=== PATIENT | female | born 1945 | race Caucasian/White ===

== ENCOUNTER 2023-07-29 12:19 | Outpatient (RCR) | payer MEDICARE, OTHER, SELFPAY | END 2023-07-29 23:59 | disposition home or self-care (01) | LOC: RPT 12:19 | PROVIDERS: ATTENDING PHYSICIAN Nurse Practitioner; FAMILY PHYSICIAN Family Medicine | DX: N39.3 Stress incontinence (female) (male) (principal); R35.0 Frequency of micturition; Z73.6 Limitation of activities due to disability | CPT/HCPCS: 97162; 97535 ==

== ENCOUNTER 2023-08-31 13:24 | Outpatient (RCR) | payer MEDICARE, OTHER, SELFPAY | END 2023-08-31 23:59 | disposition home or self-care (01) | LOC: RPT 13:24 | PROVIDERS: ATTENDING PHYSICIAN Nurse Practitioner; FAMILY PHYSICIAN Family Medicine | DX: N39.3 Stress incontinence (female) (male) (principal); R35.0 Frequency of micturition; Z73.6 Limitation of activities due to disability | CPT/HCPCS: 97010; 97110; 97535 ==

== ENCOUNTER 2023-09-28 13:05 | Outpatient (RCR) | payer MEDICARE, OTHER, SELFPAY | END 2023-09-28 23:59 | disposition home or self-care (01) | LOC: RPT 13:05 | PROVIDERS: ATTENDING PHYSICIAN Nurse Practitioner; FAMILY PHYSICIAN Family Medicine | DX: N39.3 Stress incontinence (female) (male) (principal); R35.0 Frequency of micturition; Z73.6 Limitation of activities due to disability | CPT/HCPCS: 97110; 97535 ==

== ENCOUNTER 2023-10-19 17:26 | Emergency (ER) | payer MEDICARE, OTHER, SELFPAY ==
[2023-10-19 17:35] VITALS: BP 157/104
[2023-10-19 18:06] LABS: % Basophils 0.6 % (0-2); % Eosinophils 2.4 % (0-6); % Immature Granulocytes 0.4 % (0-0.5); % Lymphocytes 34.1 % (20.5-51.1); % Monocytes 7.3 % (1.7-9.3); % Neutrophils 55.2 % (42.2-75.2); Absolute Basophils 0.1 10^3/uL (0-0.2); Absolute Eosinophils 0.3 10^3/uL (0-0.7); Absolute Lymphocytes 3.8 10^3/uL (1.2-3.4); Absolute Monocytes 0.8 10^3/uL (0.1-0.6); Absolute Neutrophils 6.1 10^3/uL (1.4-6.5); Hematocrit 39.9 % (37.0-47.0); Mean Corp Hgb Conc. 32.6 g/dL (33.0-37.0); Mean Corpuscular Hgb 30.5 pg (27.0-31.0); Mean Corpuscular Volume 93.7 fL (81.0-99.0); Mean Platelet Volume 9.7 fL (7.4-10.4); Nucleated Red Blood Cells % 0 %; Platelet Count 291 10^3/uL (130-400); Red Blood Cell Count 4.26 10^6/uL (4.20-5.40); Red Cell Dist. Width 13.8 % (11.5-14.5)
[2023-10-19 18:20] LABS: AST (SGOT) 28 U/L (14-36); Albumin 4.3 g/dl (3.5-5.0); Alkaline Phosphatase 79 U/L (38-126); Blood Urea Nitrogen 14 mg/dl (7-17); Calcium 9.5 mg/dl (8.4-10.2); Carbon Dioxide 24 mmol/L (22-30); Chloride 105 mmol/L (98-107); Glucose 105 mg/dl (70-99); Lipase 64 U/L (23-300); Potassium 4.3 mmol/L (3.5-5.1); Sodium 135 mmol/L (135-145); Total Bilirubin 0.5 mg/dl (0.2-1.3); Total Protein 6.7 g/dl (6.3-8.2); eGFR > 60.00
[2023-10-19 18:21] LABS: ALT (SGPT) 28 U/L (0-35)
[2023-10-19 20:00] VITALS: BMI 28.4
--- NOTE | 2023-10-19 20:18 | ED.GENMED ---
History of Present Illness
General
Chief Complaint: Abdominal Pain
Source: patient
Exam Limitations: none
Time Seen by Provider: 10/19/23 19:29
Travel History
Have you had any contact with someone who has COVID-19?: No
Do you have any symptoms of coronavirus? Fever > 100 degrees, chills, cough, shortness of breath, sore throat, loss of taste or smell, muscle aches, or headache?: No
History of Present Illness
History of Present Illness:
This is a 78 year old female that comes in with c/o upper abd pain. States that she went to see the PCP today as she has had upper abd pain. States that she has UTI and was on Macrobid. States that 2 days after she stopped the medication she had
upper abd pain, nausea, and diarrhea. States that the PCP thought it could be Pancreatitis. State that she also has a headache. Denies any fever, chills, chest pain, SOB, vomiting, dizziness, urinary burning.
Past History
Past History
ED Past Medical History: Fibromyalgia, GERD, HTN, Hypothyroidism and Other (Back pain Diverticulitis, UTI, Gastritis)
ED Past Surgical History: Appendectomy, Cholecystectomy, , Gynecological (Hysterectomy total) and Tonsilectomy
Social History
Tobacco: Non-smoker
Alcohol: Occasional
Personal:
Living: alone
Family History
Family History: Diabetes and CAD
Review of Systems
Review of Systems
All Other Systems: ROS reviewed and negative except as documented in HPI and ROS
Constitutional: Reports no symptoms; Denies fever or chills
EENT: Reports no symptoms
Respiratory: Reports no symptoms; Denies cough or trouble breathing
Cardiac: Reports no symptoms; Denies chest pain
ABD/GI: Reports abdominal pain (Upper abd pain), nausea and diarrhea; Denies vomiting
: Reports no symptoms; Denies dysuria, frequency or urgency
Musculoskeletal: Reports no symptoms
Skin: Reports no symptoms
Psychiatric: Reports no symptoms
Phy Exam
General Physical Exam
General Presentation: mild distress
General age: appears stated age
General Skin: warm and dry
General Habitus: elderly
General Mental: alert and anxious
General Hydration: appears well hydrated
ENT Exam
ENT Exam: TM's normal, pharynx normal and neck supple
Eye Exam
Eye Exam: EOMI
Cardiovascular Exam
Cardiovascular Exam: regular rate/rhythm, no edema, no murmur and normal peripheral pulses
Pulmonary Exam
Pulmonary Exam: lungs clear, no respiratory distress, no rales, chest non tender, no crackles, no rhonchi, no wheezing and no cough
Gastrointestinal Exam
Gastrointestinal Exam: normal bowel sounds, soft, no organomegaly, no pulsatile mass, non distended and tender (Epigastric tenderness with palpation)
Musculoskeletal Exam
Musculoskeletal Exam: full ROM and no edema
Skin Exam
Skin Exam: normal color, warm/dry, no rash and no petechia
Psychiatric Exam
Psychiatric Exam: normal mood/affect
Course
Orders/Labs/Results
Orders:
Orders
10/19/23 17:32
IV Insert/Care/Rem.- Treatment PRN
Urinalysis Reflex To Culture Urgent
Date Specimen was Collected: 10/19/23
Time Specimen was Collected: 17:33
10/19/23 17:33
EKG [Electrocardiogram (*1)] Urgent
Reason for Study: Abdominal Pain
EKG- Treatment ONCE
10/19/23 17:46
Complete Blood Count/With Diff Urgent
Comprehensive Metabolic Panel Urgent
Lipase Urgent
10/19/23 20:17
Pantoprazole [Protonix IV] 40 mg IV NOW STA
Sucralfate Suspension [Carafate Suspension] 1 gm PO NOW STA
US Abdomen Complete/Upper Urgent
Comment:
Reason For Exam: Upper abd pain
10/19/23 20:20
Ondansetron Injectable [Zofran] 4 mg IV NOW STA
Abnormal Lab Results
10/19/23
17:46
WBC 11.0 H 10^3/uL
(4.8-10.8)
MCHC 32.6 L g/dL
(33.0-37.0)
Absolute Lymphs (auto) 3.8 H 10^3/uL
(1.2-3.4)
Absolute Monos (auto) 0.8 H 10^3/uL
(0.1-0.6)
Glucose 105 H mg/dl
(70-99)
10/19/23 17:46
10/19/23 17:46
WBC very slightly elevated. Glucose nonfasting. Lipase normal at 64
Vital Signs
Initial and Last Documented VS:
Initial Vital Signs
Temp Pulse Resp BP Pulse Ox
97.6 F 95 18 157/104 98
10/19/23 17:35 10/19/23 17:35 10/19/23 17:35 10/19/23 17:35 10/19/23 17:35
Last Documented Vital Signs
Temp Pulse Resp BP Pulse Ox
97.6 F 72 20 152/72 97
10/19/23 17:35 10/19/23 20:39 10/19/23 20:39 10/19/23 20:39 10/19/23 20:39
MDM/Problems Addressed
Differential Diagnosis Includes:
Gastritis,
MDM/Problems Addressed:
This is a 78 year old female that comes in with c/o epigastric pain. States that this started 2 days after she stopped the Macrobid for a UTI. States that she also had diarrhea. Patient went to see the PCP today and was sent into the ER.
Will check labs. US abd and give Protonix and Carafate.
Back into see patient. Explained that her US is normal. This is most likely a Gastritis. Will have patient use Carafate which she said that she has at home but has not been taking and will also add Protonix daily. Patient to follow up with the GI
specialist for further evaluation. Patient to return with any concerns.
Chronic conditions affecting care:
Gastritis
Acute Exacerbation and/or Progression of Chronic Illness:
Gastritis
*Radiology
Radiology exam reviewed: radiology read reviewed (US-Moderate diffuse hepatic steatosis. Previous cholecystectomy. No sonograpic evidence for biliary obstruction. NO sonographic evidence for upper abd ascites. Mild chronic bilateral renal disease. )
*EKG
Interpreted by ED Provider?: Yes
Heart Rate: 84
Rate: normal
Rhythm: PAC's
Chrisney: normal axis
Interval: normal interval
QRS Pattern: normal QRS
Ischemia: no ischemia
*Director Of Player Personnel Interpretation
Rate: Director Of Player Personnel- N/A
*Critical Care Note
Total Time (30-74mins, 75-104mins- exclusive of procedures): Not Applicable
ED Attending Note
-
Portions of this chart may have been created with voice recognition software.� Occasional wrong word or��sound alike� substitutions may have occurred due to the inherent limitations of voice recognition software.
Discharge Plan
Departure
Patient Disposition: Home (Routine Discharge)
Date of Disposition: 10/19/23
Time of Disposition: 22:09
Patient with high blood pressure during this ER visit?: Yes
Condition: Good
Covid-19: Not Applicable
Discharge Problem:
Gastritis
Instructions: Gastritis (DC), Ulcer and Gastritis Diet, BLOOD PRESSURE
Prescriptions:
New
pantoprazole [Protonix] 40 mg tablet,delayed release (DR/EC)
40 mg PO DAILY Qty: 30 0RF
No Action
levothyroxine 88 MCG tablet
88 mcg PO DAILY
cyclobenzaprine 10 MG tablet
10 mg PO HSPRN PRN (Reason: fibromyalgia)
Eye Drops (tetrahydrozoline) 1 DROP drops
1 drp BOTH EYES BIDPRN PRN (Reason: dry eyes)
acyclovir 200 MG capsule
400 mg PO TID PRN (Reason: 'herpes outbreaks')
Eliquis 5 mg tablet
5 mg PO BID Qty: 60 0RF
acetaminophen 500 mg Tablet
1,000 mg PO Q6H PRN (Reason: arthritis)
lorazepam 0.5 mg Tablet
0.5 mg PO HS PRN (Reason: anxiety)
diltiazem HCl [Cartia XT] 120 mg Capsule,Extended Release 24hr
120 mg PO DAILY
estradiol 0.01 % (0.1 mg/gram) Cream
See Rx Instructions .ROUTE .COMPLEX
Rx Instructions:
1 appful vaginally 2 times a week
buspirone 15 mg Tablet
15 mg PO DAILY
multivitamin Tablet
1 tab PO DAILY
alendronate-vitamin D3 70 mg- 2,800 unit Tablet
1 tab PO QWEEK
phenazopyridine [Pyridium] 100 mg tablet
100 mg PO TID PRN (Reason: Pain) Qty: 10 0RF
amitriptyline
10 mg PO DAILY
Referrals:
Durga Bonilla MD [Family Provider] - Call in 1-3 days for appt
Activity Restrictions/Additional Instructions:
As discussed, your US is normal. This is most likely a Gastritis. Please use your Carafate that you have at home 30min to 1 hour before each meal and again at Bedtime. YOu have also been given a prescription for Protonix daily. Follow up with the GI
specialist for further evaluation. You may also use Tylenol 1000mg every 6 hours for you headache pain. Pleae increase your water intake to 8-8oz glasses daily. IF YOU HAVE ANY OTHER CONCERNS PLEASE RETURN TO THE EMERGENCY ROOM.
Interventions
Interventions:
*Risk Screen - Suicide Last Done: 10/19/23 17:35
*General Assessment Last Done: 10/19/23 17:35
*Neglect/Abuse Screening Last Done: 10/19/23 17:35
ED- Fall Risk Assessment Last Done: 10/19/23 19:54
*ED COVID-19 Vaccine History Last Done: 10/19/23 17:35
[facility] Assessment Last Done: 10/19/23 19:54
Discharge Date and Time
Print Language: ROMANSH
[2023-10-19] MEDS: CARAFATE SUSPENSION 1 GM PO (20:26)
[2023-10-19] MEDS: ZOFRAN 4 MG IV (20:26)
[2023-10-19] MEDS: PROTONIX IV 40 MG IV (20:26)
[2023-10-19 20:39] VITALS: BP 152/72
[2023-10-19 22:12] VITALS: BP 148/68
[2023-10-19] MEDS: TYLENOL 1000 MG PO (22:17)
[2023-10-19] MEDS: TORADOL 30 MG IV (22:17)
[2023-10-19 22:56] LABS: Urine Albumin Negative (Neg - Trace); Urine Bilirubin Negative (Negative); Urine Character Clear (Clear); Urine Color Yellow; Urine Glucose Negative (Negative); Urine Ketone Negative (Negative); Urine Leukocyte Negative (Negative); Urine Nitrite Negative (Negative); Urine Occult Blood Negative (Negative); Urine Urobilinogen Negative (Neg - 1+)
[2023-10-19 23:11] VITALS: BP 143/85
== END 2023-10-19 23:14 | disposition home or self-care (01) ==
LOC: EMR 17:26
PROVIDERS: Clinical Nurse Specialist Family Health; Emergency Medicine; EMERGENCY PHYSICIAN Emergency Medicine; FAMILY PHYSICIAN Family Medicine
DX: K29.70 Gastritis, unspecified, without bleeding (principal); I10 Essential (primary) hypertension; Z90.49 Acquired absence of other specified parts of digestive tract
CPT/HCPCS: 99285; 96374; 96375 ×2; 76700; 80053; 81003; 83690; 85025; 93005

== ENCOUNTER → 2023-10-25 10:18 | Outpatient (REF) | payer MEDICARE, OTHER, SELFPAY | LOC: RCS 10:18 | PROVIDERS: ATTENDING PHYSICIAN Nuclear Medicine Nuclear Cardiology; FAMILY PHYSICIAN Family Medicine | DX: I10 Essential (primary) hypertension (principal); R55 Syncope and collapse; I48.92 Unspecified atrial flutter | CPT/HCPCS: 93306 ==

== ENCOUNTER 2023-10-26 13:26 | Outpatient (RCR) | payer MEDICARE, OTHER, SELFPAY | END 2023-10-26 23:59 | disposition home or self-care (01) | LOC: RPT 13:26 | PROVIDERS: ATTENDING PHYSICIAN Nurse Practitioner; FAMILY PHYSICIAN Family Medicine | DX: N39.3 Stress incontinence (female) (male) (principal); R35.0 Frequency of micturition; Z73.6 Limitation of activities due to disability; M54.50 Low back pain, unspecified | CPT/HCPCS: 97110; 97140 ==

== ENCOUNTER 2023-11-04 16:14 | Outpatient (RCR) | payer MEDICARE, OTHER, SELFPAY | END 2023-11-04 23:59 | disposition home or self-care (01) | LOC: RPT 16:14 | PROVIDERS: ATTENDING PHYSICIAN Nurse Practitioner; FAMILY PHYSICIAN Family Medicine | DX: N39.3 Stress incontinence (female) (male) (principal); R35.0 Frequency of micturition; Z73.6 Limitation of activities due to disability | CPT/HCPCS: 97110; 97140 ==

== ENCOUNTER → 2023-11-18 12:18 | Outpatient (REF) | payer MEDICARE, OTHER, SELFPAY | LOC: HWRAD 12:18 | PROVIDERS: ATTENDING PHYSICIAN Otolaryngology; FAMILY PHYSICIAN Family Medicine | DX: J32.2 Chronic ethmoidal sinusitis (principal) | CPT/HCPCS: 70486 ==

== ENCOUNTER 2023-12-29 13:50 | Outpatient (RCR) | payer MEDICARE, OTHER, SELFPAY | END 2023-12-29 14:55 | disposition home or self-care (01) | LOC: RPT 13:50 | PROVIDERS: ATTENDING PHYSICIAN Nurse Practitioner; FAMILY PHYSICIAN Family Medicine | DX: N39.3 Stress incontinence (female) (male) (principal); R35.0 Frequency of micturition; Z73.6 Limitation of activities due to disability | CPT/HCPCS: 97110; 97140 ==

== ENCOUNTER → 2024-03-14 12:58 | Outpatient (REF) | payer MEDICARE, OTHER, SELFPAY | LOC: DHVS 12:58 | PROVIDERS: ATTENDING PHYSICIAN Registered Nurse; FAMILY PHYSICIAN Surgery Vascular Surgery | DX: I65.22 Occlusion and stenosis of left carotid artery (principal) | CPT/HCPCS: 93880 ==

== ENCOUNTER → 2024-03-23 06:20 | Day surgery (SDC) | payer MEDICARE, OTHER, SELFPAY | LOC: GI 06:20 | PROVIDERS: ATTENDING PHYSICIAN Specialist | DX: K29.50 Unspecified chronic gastritis without bleeding (principal); K31.89 Other diseases of stomach and duodenum; R10.13 Epigastric pain; R19.7 Diarrhea, unspecified | CPT/HCPCS: 43239; 88305; 88342 ==

== ENCOUNTER 2024-05-21 09:54 | Inpatient (IN) | payer MEDICARE, OTHER, SELFPAY ==
[2024-05-21] VITALS (10 sets, daily range): BP systolic 116–165; BP diastolic 63–126; BMI 28.1; BMI 26.7
[2024-05-21] MEDS: CARDIZEM 17 MG IV (06:00)
[2024-05-21] MEDS: CARDIZEM 125 IV ×3 (06:01→23:08)
[2024-05-21 06:04] LABS: % Basophils 0.1 % (0-2); % Immature Granulocytes 1.4 % (0-0.5); % Lymphocytes 14.7 % (20.5-51.1); % Monocytes 10.5 % (1.7-9.3); % Neutrophils 73.3 % (42.2-75.2); Absolute Immature Granulocytes 0.2 10^3/uL (0-0.05); Absolute Lymphocytes 1.9 10^3/uL (1.2-3.4); Absolute Monocytes 1.4 10^3/uL (0.1-0.6); Absolute Neutrophils 9.5 10^3/uL (1.4-6.5); Hematocrit 41.4 % (37.0-47.0); Hemoglobin 13.6 g/dL (12.0-16.0); Mean Corp Hgb Conc. 32.9 g/dL (33.0-37.0); Mean Corpuscular Hgb 29.2 pg (27.0-31.0); Mean Platelet Volume 9.9 fL (7.4-10.4); Nucleated Red Blood Cells % 0 %; Platelet Count 478 10^3/uL (130-400); Red Blood Cell Count 4.65 10^6/uL (4.20-5.40); Red Cell Dist. Width 14.8 % (11.5-14.5)
[2024-05-21] MEDS: ATIVAN 1 MG IV (06:20)
[2024-05-21 06:24] LABS: Troponin I < 0.012 ng/ml
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
[2024-05-21 06:32] LABS: ALT (SGPT) 32 U/L (0-35); AST (SGOT) 32 U/L (14-36); Albumin 4.6 g/dl (3.5-5.0); Alkaline Phosphatase 86 U/L (38-126); Blood Urea Nitrogen 33 mg/dl (7-17); Calcium 9.7 mg/dl (8.4-10.2); Chloride 110 mmol/L (98-107); Estimated Creatinine Clearance 51 ml/min; Glucose 208 mg/dl (70-99); Potassium 4.4 mmol/L (3.5-5.1); Sodium 143 mmol/L (135-145); Total Bilirubin 0.5 mg/dl (0.2-1.3); Total Protein 7.4 g/dl (6.3-8.2); eGFR > 60.00
[2024-05-21 06:33] LABS: Carbon Dioxide 14 mmol/L (22-30)
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
[2024-05-21] MEDS: FOLVITE 1 MG PO (09:09)
[2024-05-21] MEDS: NSS 500 IV (09:14)
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
[2024-05-21 09:36] LABS: INR 0.93; PT 12.7 Sec (11.4-14.6)
[2024-05-21 09:37] LABS: APTT 26.6 Sec (23.4-35.0)
[2024-05-21 11:05] LABS: Blood Urea Nitrogen 30 mg/dl (7-17); Calcium 8.8 mg/dl (8.4-10.2); Carbon Dioxide 21 mmol/L (22-30); Chloride 110 mmol/L (98-107); Estimated Creatinine Clearance 59 ml/min; Glucose 136 mg/dl (70-99); Potassium 4.6 mmol/L (3.5-5.1); Sodium 143 mmol/L (135-145); eGFR > 60.00
[2024-05-21 11:10] LABS: Magnesium 2.3 mg/dl (1.6-2.3); Phosphorus 3.4 mg/dl (2.5-4.5)
[2024-05-21 11:13] LABS: Alcohol None Detected
[2024-05-21 11:16] LABS: B-Hydroxybutyrate 0.09 mmol/L (0.02-0.27)
[2024-05-21] MEDS: ELIQUIS 5 MG PO ×2 (11:52→20:50)
[2024-05-21] MEDS: NSS 1000 IV ×2 (11:53→20:50)
[2024-05-21] MEDS: TYLENOL 650 MG PO ×3 (12:13→22:41)
[2024-05-21 12:21] LABS: Urine Albumin Negative (Neg - Trace); Urine Bilirubin Negative (Negative); Urine Character Clear (Clear); Urine Color Yellow; Urine Glucose Negative (Negative); Urine Ketone Negative (Negative); Urine Leukocyte Negative (Negative); Urine Nitrite Negative (Negative); Urine Occult Blood Negative (Negative); Urine Urobilinogen Negative (Neg - 1+)
--- NOTE | 2024-05-21 12:33 | PTCARENOTE ---
Addendum entered by Sindhu Castillo RN 05/21/24 13:09:
[facility] protocol in place
Original Note:
Received the patient from the ED in a stretcher. The patient is aaox3, vss, 98% on RA. Rapid Afib on the monitor with a HR of 106. She ambulated to the bed x 1 assist. Her gait is unsteady at times. She uses no ambulatory aids at home. Her Cardizem
gtt is running at 15mg/hr. She complains of chest pain and rated it a 9/10 on scale. She stated that it 'feels like someone is sitting there.' She also stated that she has felt this way for months and her doctor knows.
While doing her admission, she stated that she has one drink nightly before she goes to bed. In addition, she stated that she take multiple doses of allergy pills a day. I instructed her to talk with her doctor before taking any more pills for her
allergies. I oriented her to her room. Her call du is within reach.
[2024-05-21 12:35] LABS: Amphetamines Negative (Negative); Barbiturates Negative (Negative); Benzodiazepines Positive (Negative); Buprenorphine Negative (Negative); Cocaine Negative (Negative); Marijuana Negative (Negative); Methadone Negative (Negative); Methamphetamines Negative (Negative); Opiates Negative (Negative); Phencyclidine Negative (Negative); Tricyclic Antidepressants Negative (Negative)
[2024-05-21 13:08] LABS: Fentanyl, Urine Negative (Negative)
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
[2024-05-21] MEDS: THIAMINE INJECTION 200 MG IV (19:34)
[2024-05-21] MEDS: NON-FORMULARY ITEM 10 MG PO (22:36)
[2024-05-21] MEDS: BUSPAR 15 MG PO (23:08)
--- NOTE | 2024-05-22 01:06 | PTCARENOTE ---
Pt. remains in A-fib, rate mostly 70's-90's; Cardizem infusing at 15 mg/hr. VSS. States she feels much better than when she first came to the hospital, no chest pressure or shortness of breath. Anxious about home situation and wants fast
discharge. Plan of care reviewed with pt., understanding verbalized. NPO for probable cardioversion later this morning. Currently sleeping.
[2024-05-22 02:00] VITALS: BP 144/71
[2024-05-22 02:54] LABS: Hematocrit 37.8 % (37.0-47.0); Hemoglobin 12.3 g/dL (12.0-16.0); Mean Corp Hgb Conc. 32.5 g/dL (33.0-37.0); Mean Corpuscular Hgb 29.4 pg (27.0-31.0); Mean Corpuscular Volume 90.4 fL (81.0-99.0); Mean Platelet Volume 9.7 fL (7.4-10.4); Platelet Count 410 10^3/uL (130-400); Red Blood Cell Count 4.18 10^6/uL (4.20-5.40); White Blood Cell Count 12.3 10^3/uL (4.8-10.8)
[2024-05-22 03:09] LABS: Blood Urea Nitrogen 26 mg/dl (7-17); Calcium 8.7 mg/dl (8.4-10.2); Carbon Dioxide 18 mmol/L (22-30); Chloride 114 mmol/L (98-107); Estimated Creatinine Clearance 57 ml/min; Glucose 159 mg/dl (70-99); Magnesium 2.2 mg/dl (1.6-2.3); Phosphorus 3.3 mg/dl (2.5-4.5); Potassium 4.6 mmol/L (3.5-5.1); Sodium 142 mmol/L (135-145); eGFR > 60.00
--- NOTE | 2024-05-22 05:34 | PTCARENOTE ---
Pt.'s HR 70's, A-fib, had ~2.04 sec pause. Cardizem titrated down to 10 mg/hr.
[2024-05-22] MEDS: SYNTHROID 88 MCG PO (06:17)
[2024-05-22] MEDS: NSS 1000 IV (06:17)
[2024-05-22] MEDS: TYLENOL 650 MG PO ×2 (06:22→19:58)
[2024-05-22] MEDS: CARDIZEM 125 IV (06:25)
[2024-05-22 07:02] VITALS: BP 137/79
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
[2024-05-22 08:19] LABS: Glycohemoglobin (HgbA1c) 6.3 % (4.0-5.6)
[2024-05-22] MEDS: ELIQUIS 5 MG PO ×2 (08:42→19:56)
[2024-05-22] MEDS: PROTONIX 40 MG PO (08:42)
[2024-05-22] MEDS: ASPIR LOW (ENTERIC COATED) 81 MG PO (08:43)
[2024-05-22] MEDS: THIAMINE INJECTION IV (08:44)
[2024-05-22] MEDS: FOLVITE 1 MG PO (08:44)
[2024-05-22] MEDS: THIAMINE INJECTION 200 MG IV ×2 (08:45→19:56)
[2024-05-22] MEDS: CARDIZEM CD 120 MG PO ×3 (10:21→22:37)
[2024-05-22] MEDS: LR 1000 IV (10:22)
--- NOTE | 2024-05-22 10:31 | PTCARENOTE ---
received patient this am , very anxious, alot going on in her personal life, let her talk, offered emotional support. Dr. Carlisle in room, will start to wean off IV Cardizem and start po. monitor shows Afib, HR in the 90's. hospitalist ordered 1 L LR,
hung as ordered. patient remains on MSAS, please see worklist. son in law at bedside asking questions Ena MCDANIELS in talking with family and patient.
--- NOTE | 2024-05-22 11:33 | CM ---
Chart reviewed. Patient is independent of ADLS, lives with her disabled sister who she cares for, in a 1 STH, 4 SAHIL, 0 DME. Patient having a lot of anxiety with managing her sister. She has a plan in place with placement of her sister into
[facility]. Patient currently has samples of Eliquis and told me she pays $250 a month. The stage set designer office has been giving her samples. I placed a free 30 day coupon in the patient's red discharge folder. Patients ARSH was at bedside,
unable to offer substance abuse counseling at the present. Will reassess. Plan is for the patient to return home. CM to follow
[2024-05-22 12:00] VITALS: BP 156/98
[2024-05-22 14:34] LABS: Blood Urea Nitrogen 21 mg/dl (7-17); Calcium 8.9 mg/dl (8.4-10.2); Carbon Dioxide 18 mmol/L (22-30); Chloride 111 mmol/L (98-107); Estimated Creatinine Clearance 50 ml/min; Glucose 128 mg/dl (70-99); Potassium 4.3 mmol/L (3.5-5.1); Sodium 142 mmol/L (135-145); eGFR > 60.00
[2024-05-22 15:07] VITALS: BP 154/69
[2024-05-22 15:30] LABS: TSH Reflex To Free T4 0.33 uIU/ml (0.47-4.68)
[2024-05-22 15:59] LABS: Free T4 1.08 ng/dl (0.78-2.19)
--- NOTE | 2024-05-22 16:30 | W.PN.HOSP.TC ---
Addendum entered and electronically signed by Jacoby Zapata MD 05/22/24 16:54:
[id number]
Original Note:
Today's Communication/Plan
-
Diltiazem 120 mg twice daily
Follow-up CBC, BMP outpatient
Alco cessation
Close cardiology follow-up; cardiology will have office call to check up on her
Assessment / Plan
Assessment / Plan
General: No pallor, cyanosis, or jaundice.
HEENT: Throat clear. PERRLA Normocephalic atraumatic
NECK: Supple. No JVD Carotid Bruits
RESPIRATORY: Lungs clear to auscultation. No crackles wheezes stridor
CVS: Irregularly Irregular tachy. No murmur, rub or gallop.
ABDOMEN: Soft, non-tender. No distension. BS+/normal.
EXTREMITIES: No peripheral cyanosis or edema.
PRODUCE ASSISTANT: AOx3
#Afib AVR
improved on cardizem gtt and once ativan
-Cardizem BID
-MOnitor HRs
-Will get close cards outpatient
IVF support
back on Eliquis 5 mg BID - coupon given
-TFTs outpatient
#possible ETOH use contributing to dehydration as above
#possible ETOH use disorder
endorses daily drinking 1-2 glasses bedtime
Denies hx ETOH withdrawal
Thiamine Folate supplementation
monitor on MSAS protocol for now
educated on cessation
-BMP outpatient
#Social Stressors
#hx Anxiety Fibromyalgia
#pt endorses feelings of depression denies thoughts of harming self or others
Psych eval
cont home
buspirone nortiptyline prn ativan cyclobenzaprine bedtime
#Hypothyroidism
cont home synthroid
TFTs WNL
#GERD
ppi
DVT ppx
Eliquis
More than 30 minutes spent in discharge including
Final examination of the patient
Summarizing hospital stay
Instructions for continuing care to all relevant caregivers
Preparation of discharge records, prescriptions, and referral forms
Total time spent (35 in minutes):
Anticipated Discharge: Within 24 hours
Subjective/Interval History
-
Date of Service: May 22, 2024
Weaning off diltiazem drip to p.o.
Objective Data
-
Labs:
Laboratory Results
05/22/24
13:52
Sodium 142
Potassium 4.3
Chloride 111 H
Carbon Dioxide 18 L
BUN 21 H
Creatinine 0.8
Glucose 128 H
Calcium 8.9
Vital Signs:
Vital Signs
Temp Pulse Resp BP Pulse Ox
98.6 F 145 20 156/98 97
05/22/24 15:05 05/22/24 15:00 05/22/24 15:05 05/22/24 12:00 05/22/24 15:05
I&O
05/21/24 05/22/24 05/23/24
06:59 06:59 06:59
Intake Total 3500 / 3500 720 / 720
Output Total 1550 / 1550 600 / 600
Balance 1950 / 1950 120 / 120
Review of Systems
-
History Source: Patient
All other systems: Not reviewed unless documented
Data Reviewed
-
Labs: Labs Reviewed by me
--- NOTE | 2024-05-22 16:38 | W.DS.TRANS ---
DC Summary - Sports Trainer
-
Discharge Instructions:
Sleep Apnea Risk Low
Discharge Diagnosis/Procedures Atrial fibrillation
Diet Low Cholesterol,Low Fat
Blood Work TFTs outpatient; BMP in 5 days with PCP
Instructions:
Stand-Alone Forms:
Changes to Home Medications: Yes
Discharge Medications:
DC Medications w/original date entered in [employer]
levothyroxine 88 mcg tablet 88 mcg PO DAILY@06 Thyroid 05/23/10
cyclobenzaprine 10 mg tablet 10 mg PO HSPRN PRN fibromyalgia 12/30/17
buspirone 15 mg tablet 15 mg PO HS Mental Health/Anxiety 11/05/22
lorazepam 0.5 mg tablet 0.5 mg PO HS PRN anxiety 11/05/22
pantoprazole 40 mg tablet,delayed release (Protonix) 40 mg PO DAILY Gastrointestinal issue #30 tabs 10/19/23
aspirin 81 mg capsule 81 mg PO DAILY Blood Clot Prevention/Tx 05/21/24
nortriptyline 10 mg/5 mL oral solution 10 mg PO HS Sleep 05/21/24
apixaban 5 mg tablet (Eliquis) 5 mg PO BID 30 days #60 tabs 05/22/24
diltiazem HCl 120 mg capsule,extended release 24 hr 120 mg PO BID 30 days #60 caps 05/22/24
Home Medication Changes
apixaban 5 mg tablet (Eliquis) 5 mg PO BID 30 days #60 tabs 05/22/24
diltiazem HCl 120 mg capsule,extended release 24 hr 120 mg PO BID 30 days #60 caps 05/22/24
Pending Results: No
--- NOTE | 2024-05-22 16:42 | PTCARENOTE ---
HR ranging from 111 to 130's, Ena MCDANIELS aware, ordered another dose of Cardizem 120mg po, given as ordered.
--- NOTE | 2024-05-22 17:02 | PTCARENOTE ---
Addendum entered by Caroline Her RN 05/22/24 17:51:
COVID swab negative.
Original Note:
patient just informed me that her sister who she lives with just tested positive for COVID, patient stated, I have had a headache and scratchy throat. Ena MCDANIELS aware, ordered COVID test.
[2024-05-22 17:47] LABS: COVID-19 Antigen Negative (Negative)
[2024-05-22 19:26] VITALS: BP 162/75
[2024-05-22 22:35] VITALS: BP 130/88
[2024-05-22] MEDS: NON-FORMULARY ITEM 10 MG PO (22:37)
[2024-05-22] MEDS: BUSPAR 15 MG PO (22:37)
[2024-05-23] VITALS (8 sets, daily range): BP systolic 130–188; BP diastolic 83–93
--- NOTE | 2024-05-23 00:46 | PTCARENOTE ---
Assumed care of patient at change of shift. Tele monitor shows Afib, HR in the 90-130s. Patient AAOx3, anxious, and vented about home situation. Emotional support provided. Patient c/o headache pain, Tylenol administered--see MAR for further
details. Call du within reach.
[2024-05-23] MEDS: SYNTHROID 88 MCG PO (04:40)
[2024-05-23 05:30] LABS: Hematocrit 40.2 % (37.0-47.0); Hemoglobin 13.6 g/dL (12.0-16.0); Mean Corp Hgb Conc. 33.8 g/dL (33.0-37.0); Mean Corpuscular Volume 88.5 fL (81.0-99.0); Platelet Count 467 10^3/uL (130-400); Red Blood Cell Count 4.54 10^6/uL (4.20-5.40); Red Cell Dist. Width 15.1 % (11.5-14.5); White Blood Cell Count 15.1 10^3/uL (4.8-10.8)
[2024-05-23 05:50] LABS: Blood Urea Nitrogen 21 mg/dl (7-17); Calcium 9.4 mg/dl (8.4-10.2); Carbon Dioxide 16 mmol/L (22-30); Chloride 109 mmol/L (98-107); Estimated Creatinine Clearance 57 ml/min; Glucose 163 mg/dl (70-99); Magnesium 2.1 mg/dl (1.6-2.3); Phosphorus 3.6 mg/dl (2.5-4.5); Potassium 4.5 mmol/L (3.5-5.1); Sodium 142 mmol/L (135-145); eGFR > 60.00
[2024-05-23] MEDS: PROTONIX 40 MG PO (08:25)
[2024-05-23] MEDS: ASPIR LOW (ENTERIC COATED) 81 MG PO (08:25)
[2024-05-23] MEDS: FOLVITE 1 MG PO (08:26)
[2024-05-23] MEDS: ELIQUIS 5 MG PO ×2 (08:26→19:48)
[2024-05-23] MEDS: CARDIZEM CD 120 MG PO ×2 (08:26→11:25)
[2024-05-23] MEDS: THIAMINE INJECTION 200 MG IV ×2 (08:26→19:48)
[2024-05-23] MEDS: FLUSH (NSS) 1 FLUSH IV (08:27)
--- NOTE | 2024-05-23 09:54 | PTCARENOTE ---
received patient this am, very anxious, very concerned about her sister and now her sister and son in law have covid and she is convinced she has it. I informed her that we did a covid swab on her yesterday and it was negative. monitor shows Afib
with a steady HR in the 100 - 120's. VSS. offered emotional support to patient.
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
--- NOTE | 2024-05-23 11:27 | CM ---
Chart reviewed. Patient is independent of ADLS, lives with her sister who was recently diagnosed with Dementia, in a 1 STH, 4 SAHIL, 0 DME. Patient recently set her sister up with fci care placement at [facility], but patient's sister was
just diagnosed with Covid along with patient's son in law. Patient concerned she is going to get Covid. Patient was tested last night and is negative. CM to follow
[2024-05-23] MEDS: TYLENOL 650 MG PO ×2 (11:31→21:13)
--- NOTE | 2024-05-23 11:31 | PTCARENOTE ---
patient c/o frontal headache, Tylenol po given as ordered.
--- NOTE | 2024-05-23 11:47 | PTCARENOTE ---
HR remains in the 110's plus, additional dose of Cardizem po given as ordered.
--- NOTE | 2024-05-23 14:22 | W.PN.HOSP.TC ---
Today's Communication/Plan
-
Increase Cardizem to 240 mg twice daily
Monitor heart rates, goal heart rate less than 110
If heart rates remain uncontrolled, then plan on CAITLIN/cardioversion
Assessment / Plan
Assessment / Plan
General: No pallor, cyanosis, or jaundice.
HEENT: Throat clear. PERRLA Normocephalic atraumatic
NECK: Supple. No JVD Carotid Bruits
RESPIRATORY: Lungs clear to auscultation. No crackles wheezes stridor
CVS: Irregularly Irregular tachy. No murmur, rub or gallop.
ABDOMEN: Soft, non-tender. No distension. BS+/normal.
EXTREMITIES: No peripheral cyanosis or edema.
SUPERINTENDENT METERS: AOx3
#Afib AVR
improved on cardizem gtt and once ativan
-Cardizem BID; increase to 240 mg twice daily
-MOnitor HRs
�If no improvement in increase in Cardizem, n.p.o. at midnight for possible CAITLIN and cardioversion
IVF support
back on Eliquis 5 mg BID - coupon given
-TFTs outpatient
#possible ETOH use contributing to dehydration as above
#possible ETOH use disorder
endorses daily drinking 1-2 glasses bedtime
Denies hx ETOH withdrawal
Thiamine Folate supplementation
monitor on MSAS protocol for now
educated on cessation
-BMP outpatient
#Social Stressors
#hx Anxiety Fibromyalgia
#pt endorses feelings of depression denies thoughts of harming self or others
Psych eval
cont home
buspirone nortiptyline prn ativan cyclobenzaprine bedtime
#Hypothyroidism
cont home synthroid
TFTs WNL
#GERD
ppi
DVT ppx
Eliquis
Anticipated Discharge: 24 - 48 hours
Subjective/Interval History
-
Date of Service: May 23, 2024
Still tachycardic
Objective Data
-
Labs:
Laboratory Results
05/23/24
04:33
WBC 15.1 H
Hgb 13.6
Hct 40.2
Plt Count 467 H
Sodium 142
Potassium 4.5
Chloride 109 H
Carbon Dioxide 16 L
BUN 21 H
Creatinine 0.7
Glucose 163 H
Calcium 9.4
Vital Signs:
Vital Signs
Temp Pulse Resp BP Pulse Ox
98.4 F 106 16 131/89 96
05/23/24 12:24 05/23/24 11:25 05/23/24 12:24 05/23/24 11:25 05/23/24 12:24
I&O
05/22/24 05/23/24 05/24/24
06:59 06:59 06:59
Intake Total 3500 / 3500 1460 / 1460
Output Total 1550 / 1550 800 / 800 1100 / 1100
Balance 1950 / 1950 660 / 660 -1100 / -1100
Review of Systems
-
History Source: Patient
All other systems: Not reviewed unless documented
Data Reviewed
-
Labs: Labs Reviewed by me
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
[2024-05-23] MEDS: CARDIZEM CD 240 MG PO (19:48)
[2024-05-23] MEDS: ANESTHETIC LOZENGE 1 LOZENGE PO (21:13)
[2024-05-23] MEDS: BUSPAR 15 MG PO (22:40)
[2024-05-23] MEDS: NON-FORMULARY ITEM 10 MG PO (22:40)
--- NOTE | 2024-05-23 23:11 | PTCARENOTE ---
Patient ambulating self in room. Tele monitor shows Afib. HR in the 140-150's w/ ambulation. At rest HR in the 90-110's. Patient aware to maintain NPO status at midnight for possible CAITLIN/CV on 05/24. Call du within reach.
[2024-05-24] VITALS (7 sets, daily range): BP systolic 122–154; BP diastolic 74–103
[2024-05-24] MEDS: TYLENOL 650 MG PO ×3 (04:38→23:15)
[2024-05-24] MEDS: SYNTHROID 88 MCG PO (04:39)
[2024-05-24 04:47] LABS: Hemoglobin 13.8 g/dL (12.0-16.0); Mean Corp Hgb Conc. 32.9 g/dL (33.0-37.0); Mean Corpuscular Hgb 29.2 pg (27.0-31.0); Mean Corpuscular Volume 88.8 fL (81.0-99.0); Mean Platelet Volume 9.2 fL (7.4-10.4); Platelet Count 458 10^3/uL (130-400); Red Blood Cell Count 4.73 10^6/uL (4.20-5.40); Red Cell Dist. Width 15.1 % (11.5-14.5); White Blood Cell Count 20.6 10^3/uL (4.8-10.8)
[2024-05-24 05:11] LABS: Blood Urea Nitrogen 24 mg/dl (7-17); Calcium 9.2 mg/dl (8.4-10.2); Carbon Dioxide 17 mmol/L (22-30); Chloride 112 mmol/L (98-107); Estimated Creatinine Clearance 50 ml/min; Glucose 152 mg/dl (70-99); Magnesium 2.2 mg/dl (1.6-2.3); Phosphorus 4.2 mg/dl (2.5-4.5); Potassium 4.7 mmol/L (3.5-5.1); Sodium 143 mmol/L (135-145); eGFR > 60.00
[2024-05-24] MEDS: FOLVITE 1 MG PO (08:03)
[2024-05-24] MEDS: CARDIZEM CD 240 MG PO ×2 (08:05→21:02)
[2024-05-24] MEDS: ASPIR LOW (ENTERIC COATED) 81 MG PO (08:05)
[2024-05-24] MEDS: PROTONIX 40 MG PO (08:05)
[2024-05-24] MEDS: THIAMINE INJECTION 200 MG IV (08:06)
[2024-05-24] MEDS: ELIQUIS 5 MG PO ×2 (08:16→21:02)
--- NOTE | 2024-05-24 08:27 | PTCARENOTE ---
The patient is refusing her BuSpar this morning. 'It make me feel dopey and gives me dry mouth, I don't want it'. She also states that she thought the nighttime dose was supposed to be split in half giving her 7.5 mg in the morning and at night, not
7.5 mg in the morning and 15 mg at night.
She also stated that her sister and son-in-law both have Covid. She has an occasional non-productive cough. She also complains of a scratchy throat and nasal congestion 'but I had that (nasal congestion) way before I came here.'
Rapid afib is noted on the monitor with HRs in the low 100s.
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
[2024-05-24] MEDS: LOPRESSOR 12.5 MG PO ×2 (09:35→21:02)
[2024-05-24] MEDS: LR 1000 IV (09:38)
[2024-05-24] MEDS: FLUSH (NSS) 1 FLUSH IV ×2 (09:39→10:54)
[2024-05-24 09:54] LABS: COVID-19 Antigen Positive (Negative)
--- NOTE | 2024-05-24 10:31 | PTCARENOTE ---
Patient's Covid came back positive, Dr. Zapata notified.
[2024-05-24] MEDS: ANESTHETIC LOZENGE 1 LOZENGE PO (10:54)
--- NOTE | 2024-05-24 11:28 | CM ---
Chart reviewed. 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 Patient sister getting placed in a LTC facility, but just contracted covid. Patient also tested positive for covid.
Plan is for the patient to return home. CM to follow
--- NOTE | 2024-05-24 15:10 | W.PN.HOSP.TC ---
Today's Communication/Plan
-
supportive care for sars-cov-2
add lopressor - monitor response
Assessment / Plan
Assessment / Plan
General: No pallor, cyanosis, or jaundice.
HEENT: Throat clear. PERRLA Normocephalic atraumatic
NECK: Supple. No JVD Carotid Bruits
RESPIRATORY: Lungs clear to auscultation. No crackles wheezes stridor
CVS: Irregularly Irregular tachy. No murmur, rub or gallop.
ABDOMEN: Soft, non-tender. No distension. BS+/normal.
EXTREMITIES: No peripheral cyanosis or edema.
RECORD KEEPER: AOx3
#Afib AVR
improved on cardizem gtt and once ativan
-Cardizem BID; increase to 240 mg twice daily
� Add Lopressor 12.5 mg twice daily
� Holding off on CAITLIN/cardioversion due to SARS-CoV-2
-MOnitor HRs
IVF support
back on Eliquis 5 mg BID - coupon given
-TFTs outpatient
#SARS-CoV-2
# Mild symptoms
� Not hypoxic
� Supportive care
#possible ETOH use contributing to dehydration as above
#possible ETOH use disorder
endorses daily drinking 1-2 glasses bedtime
Denies hx ETOH withdrawal
Thiamine Folate supplementation
monitor on MSAS protocol for now
educated on cessation
-BMP outpatient
#Social Stressors
#hx Anxiety Fibromyalgia
#pt endorses feelings of depression denies thoughts of harming self or others
Psych eval
cont home
buspirone nortiptyline prn ativan cyclobenzaprine bedtime
#Hypothyroidism
cont home synthroid
TFTs WNL
#GERD
ppi
DVT ppx
Eliquis
Anticipated Discharge: 24 - 48 hours
Subjective/Interval History
-
Date of Service: May 24, 2024
Similar episodes of rapid A-fib walking to bathroom
COVID-positive
Objective Data
-
Labs:
Laboratory Results
05/24/24
04:31
WBC 20.6 H
Hgb 13.8
Hct 42.0
Plt Count 458 H
Sodium 143
Potassium 4.7
Chloride 112 H
Carbon Dioxide 17 L
BUN 24 H
Creatinine 0.8
Glucose 152 H
Calcium 9.2
Vital Signs:
Vital Signs
Temp Pulse Resp BP Pulse Ox
98.3 F 94 20 140/79 97
05/24/24 12:13 05/24/24 12:13 05/24/24 12:13 05/24/24 12:13 05/24/24 12:13
I&O
05/23/24 05/24/24 05/25/24
06:59 06:59 06:59
Intake Total 1460 / 1460 240 / 240 1000 / 1000
Output Total 800 / 800 1900 / 1900
Balance 660 / 660 -1660 / -1660 1000 / 1000
Review of Systems
-
History Source: Patient
All other systems: Not reviewed unless documented
Data Reviewed
-
Labs: Labs Reviewed by me
[2024-05-24] MEDS: VITAMIN B1 100 MG PO (21:02)
[2024-05-24] MEDS: BUSPAR 10 MG PO (21:03)
[2024-05-24] MEDS: NON-FORMULARY ITEM 10 MG PO (21:04)
--- NOTE | 2024-05-24 21:18 | PTCARENOTE ---
Received patient at change of shift. Patient sitting in bed, awake, alert, and oriented. No c/o of pain. BP 142/88, AFib 95-108, 97% on room air. Discussed plan of care. Patient verbalized understanding. Call du within reach.
[2024-05-25 03:37] VITALS: BP 125/77
[2024-05-25] MEDS: TYLENOL 650 MG PO ×2 (03:37→12:09)
[2024-05-25 04:13] LABS: Hematocrit 43.3 % (37.0-47.0); Hemoglobin 13.9 g/dL (12.0-16.0); Mean Corp Hgb Conc. 32.1 g/dL (33.0-37.0); Mean Corpuscular Volume 90.4 fL (81.0-99.0); Mean Platelet Volume 9.5 fL (7.4-10.4); Platelet Count 495 10^3/uL (130-400); Red Blood Cell Count 4.79 10^6/uL (4.20-5.40); Red Cell Dist. Width 15.2 % (11.5-14.5); White Blood Cell Count 20.1 10^3/uL (4.8-10.8)
[2024-05-25 04:37] LABS: Blood Urea Nitrogen 28 mg/dl (7-17); Calcium 9.4 mg/dl (8.4-10.2); Carbon Dioxide 21 mmol/L (22-30); Chloride 107 mmol/L (98-107); Estimated Creatinine Clearance 50 ml/min; Glucose 140 mg/dl (70-99); Magnesium 2.2 mg/dl (1.6-2.3); Phosphorus 4.3 mg/dl (2.5-4.5); Potassium 4.5 mmol/L (3.5-5.1); Sodium 143 mmol/L (135-145); eGFR > 60.00
[2024-05-25] MEDS: SYNTHROID 88 MCG PO (06:13)
[2024-05-25 08:24] VITALS: BP 118/76
[2024-05-25] MEDS: PROTONIX 40 MG PO (08:49)
[2024-05-25] MEDS: FOLVITE 1 MG PO (08:49)
[2024-05-25] MEDS: ELIQUIS 5 MG PO (08:49)
[2024-05-25] MEDS: VITAMIN B1 100 MG PO (08:49)
[2024-05-25] MEDS: CARDIZEM CD 240 MG PO (08:50)
[2024-05-25] MEDS: ASPIR LOW (ENTERIC COATED) 81 MG PO (08:50)
[2024-05-25] MEDS: LOPRESSOR 12.5 MG PO (08:50)
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
[2024-05-25 11:27] VITALS: BP 113/75
--- NOTE | 2024-05-25 11:45 | W.PN.HOSP.TC ---
Today's Communication/Plan
-
supportive care for sars-cov-2
lopressor, cardizem
cbc, bmp outpatient with pcp
tfts outpatient
f/u cbc, cards outpatient
Assessment / Plan
Assessment / Plan
General: No pallor, cyanosis, or jaundice.
HEENT: Throat clear. PERRLA Normocephalic atraumatic
NECK: Supple. No JVD Carotid Bruits
RESPIRATORY: Lungs clear to auscultation. No crackles wheezes stridor
CVS: Irregularly Irregular tachy. No murmur, rub or gallop.
ABDOMEN: Soft, non-tender. No distension. BS+/normal.
EXTREMITIES: No peripheral cyanosis or edema.
RADAR ENGINEER: AOx3
#Afib AVR
improved on cardizem gtt and once ativan
-Cardizem BID; increase to 240 mg twice daily
� Lopressor 12.5 mg twice daily
� Holding off on CAITLIN/cardioversion due to SARS-CoV-2
-MOnitor HRs
IVF support
back on Eliquis 5 mg BID - coupon given
-TFTs outpatient
�Follow-up cardiology outpatient
#SARS-CoV-2
# Mild symptoms
� Not hypoxic
� Supportive care
#Leukocytosis
� Remains afebrile
� Would follow-up outpatient PCP
#possible ETOH use contributing to dehydration as above
#possible ETOH use disorder
endorses daily drinking 1-2 glasses bedtime
Denies hx ETOH withdrawal
Thiamine Folate supplementation
monitor on MSAS protocol for now
educated on cessation
-BMP outpatient
#Social Stressors
#hx Anxiety Fibromyalgia
#pt endorses feelings of depression denies thoughts of harming self or others
Psych eval
cont home
buspirone nortiptyline prn ativan cyclobenzaprine bedtime
#Hypothyroidism
cont home synthroid
TFTs WNL
#GERD
ppi
DVT ppx
Eliquis
More than 30 minutes spent in discharge including
Final examination of the patient
Summarizing hospital stay
Instructions for continuing care to all relevant caregivers
Preparation of discharge records, prescriptions, and referral forms
Total time spent (35 in minutes):
Anticipated Discharge: Today
Subjective/Interval History
-
Date of Service: May 25, 2024
No acute events, heart rate much better controlled
Objective Data
-
Labs:
Laboratory Results
05/25/24
03:33
WBC 20.1 H
Hgb 13.9
Hct 43.3
Plt Count 495 H
Sodium 143
Potassium 4.5
Chloride 107
Carbon Dioxide 21 L
BUN 28 H
Creatinine 0.8
Glucose 140 H
Calcium 9.4
Vital Signs:
Vital Signs
Temp Pulse Resp BP Pulse Ox
98.3 F 98 18 118/76 96
05/25/24 11:29 05/25/24 11:15 05/25/24 11:29 05/25/24 08:24 05/25/24 11:29
I&O
05/24/24 05/25/24 05/26/24
06:59 06:59 06:59
Intake Total 240 / 240 1000 / 1000
Output Total 1900 / 1900 1200 / 1200
Balance -1660 / -1660 -200 / -200
Review of Systems
-
History Source: Patient
All other systems: Not reviewed unless documented
Data Reviewed
-
Labs: Labs Reviewed by me
--- NOTE | 2024-05-25 11:49 | W.DS.TRANS ---
DC Summary - Press Technician
-
Discharge Instructions:
Sleep Apnea Risk Low
Discharge Diagnosis/Procedures Atrial fibrillation
Diet Low Cholesterol,Low Fat
Blood Work TFTs outpatient; CBC, BMP in 3-5 days with PCP
Instructions:
Stand-Alone Forms:
Changes to Home Medications: Yes
Discharge Medications:
DC Medications w/original date entered in [facility]
levothyroxine 88 mcg tablet 88 mcg PO DAILY@06 Thyroid 05/23/10
cyclobenzaprine 10 mg tablet 10 mg PO HSPRN PRN fibromyalgia 12/30/17
buspirone 15 mg tablet 15 mg PO HS Mental Health/Anxiety 11/05/22
lorazepam 0.5 mg tablet 0.5 mg PO HS PRN anxiety 11/05/22
pantoprazole 40 mg tablet,delayed release (Protonix) 40 mg PO DAILY Gastrointestinal issue #30 tabs 10/19/23
aspirin 81 mg capsule 81 mg PO DAILY Blood Clot Prevention/Tx 05/21/24
nortriptyline 10 mg/5 mL oral solution 10 mg PO HS Sleep 05/21/24
apixaban 5 mg tablet (Eliquis) 5 mg PO BID 30 days #60 tabs 05/22/24
diltiazem HCl 240 mg capsule,extended release 24 hr 240 mg PO BID 30 days #60 caps 05/25/24
metoprolol tartrate 25 mg tablet 12.5 mg (1/2 x 25 mg) PO BID 30 days #30 tabs 05/25/24
Home Medication Changes
apixaban 5 mg tablet (Eliquis) 5 mg PO BID 30 days #60 tabs 05/22/24
diltiazem HCl 240 mg capsule,extended release 24 hr 240 mg PO BID 30 days #60 caps 05/25/24
metoprolol tartrate 25 mg tablet 12.5 mg (1/2 x 25 mg) PO BID 30 days #30 tabs 05/25/24
Pending Results: No
--- NOTE | 2024-05-25 12:51 | PTCARENOTE ---
Pt seen by Thierry and Benny. Telemetry shows atrial fib at a controlled rate @80. Telemetry and IV device removed. Discharge instructions reviewed with pt regarding covid precautions, medications and their possible side effects and the
importance of taking them consistently, AFib information, reporting cares and concerns and follow up lab tests and appointments. Pt demonstrated good understanding. Pt escorted out via wheelchair and discharged to home.
== END 2024-05-25 12:40 | disposition home or self-care (01) | DRG 308 ==
LOC: IVU 09:54
PROVIDERS: Emergency Medicine; Physician Assistant; ADMITTING PHYSICIAN Internal Medicine; ATTENDING PHYSICIAN Internal Medicine; CONSULT PHYSICIAN Internal Medicine Cardiovascular Disease; CONSULT PHYSICIAN Psychiatry & Neurology Psychiatry; EMERGENCY PHYSICIAN Student in an Organized Health Care Education/Training Program; FAMILY PHYSICIAN Family Medicine
DX: I48.0 Paroxysmal atrial fibrillation (principal); U07.1 COVID-19; E87.20 Acidosis, unspecified; F41.1 Generalized anxiety disorder; M79.7 Fibromyalgia; E03.9 Hypothyroidism, unspecified; K21.9 Gastro-esophageal reflux disease without esophagitis
CPT/HCPCS: 80048; 80053; 80306; 80307; 81003; 82010; 82077; 83036; 83605; 83735; 84100; 84439; 84443; 84484; 85025; 85027; 85610; 85730; 87811; 93005; 96361; 96374; 96375; 99285

== ENCOUNTER 2024-05-30 15:09 | Emergency (ER) | payer MEDICARE, OTHER, SELFPAY ==
[2024-05-30 15:15] VITALS: BP 140/72
[2024-05-30 15:16] VITALS: BP 140/72
[2024-05-30 15:33] LABS: % Basophils 0.3 % (0-2); % Eosinophils 2.2 % (0-6); % Immature Granulocytes 1.8 % (0-0.5); % Lymphocytes 19.5 % (20.5-51.1); % Monocytes 8.3 % (1.7-9.3); % Neutrophils 67.9 % (42.2-75.2); Absolute Basophils 0.1 10^3/uL (0-0.2); Absolute Eosinophils 0.4 10^3/uL (0-0.7); Absolute Immature Granulocytes 0.3 10^3/uL (0-0.05); Absolute Lymphocytes 3.3 10^3/uL (1.2-3.4); Absolute Monocytes 1.4 10^3/uL (0.1-0.6); Absolute Neutrophils 11.4 10^3/uL (1.4-6.5); Hematocrit 36.7 % (37.0-47.0); Hemoglobin 12.6 g/dL (12.0-16.0); Mean Corp Hgb Conc. 34.3 g/dL (33.0-37.0); Mean Corpuscular Hgb 30.1 pg (27.0-31.0); Mean Corpuscular Volume 87.8 fL (81.0-99.0); Mean Platelet Volume 9.4 fL (7.4-10.4); Nucleated Red Blood Cells % 0 %; Platelet Count 386 10^3/uL (130-400); Red Blood Cell Count 4.18 10^6/uL (4.20-5.40); Red Cell Dist. Width 15.6 % (11.5-14.5); White Blood Cell Count 16.8 10^3/uL (4.8-10.8)
[2024-05-30 15:48] LABS: ALT (SGPT) 27 U/L (0-35); AST (SGOT) 21 U/L (14-36); Albumin 3.9 g/dl (3.5-5.0); Alkaline Phosphatase 74 U/L (38-126); Blood Urea Nitrogen 20 mg/dl (7-17); Calcium 8.9 mg/dl (8.4-10.2); Carbon Dioxide 19 mmol/L (22-30); Chloride 107 mmol/L (98-107); Glucose 117 mg/dl (70-99); Sodium 139 mmol/L (135-145); Total Bilirubin 0.5 mg/dl (0.2-1.3); Total Protein 6.4 g/dl (6.3-8.2); eGFR > 60.00
[2024-05-30 16:00] VITALS: BP 139/76
--- NOTE | 2024-05-30 16:11 | ED.GENMED ---
History of Present Illness
<Stacy Wolfe MD, Resident - Last Filed: 05/30/24 21:20>
General
Chief Complaint: Allergic Reaction
Time Seen by Provider: 05/30/24 15:14
History of Present Illness
History of Present Illness:
78 y/o female with pmhx of Afib with RVR and GERD presenting to the ED with concern for allergic reaction with Cardizem. Patient was seen here last week for Afib and was started on Eliquis and Cardizem. Pt notes she has been feeling well since being
discharged on Wednesday. Pt feels a burning sensation in her throat when drinking but denies trouble breathing. Also notes notes headache in the frontal area which states are similar to her prior episodes of headache Also notes abdominal discomfort and
epigastric pain and nausea (no vomiting), has a history of GERD and feels her symptoms have been worse in the past couple days and no relief with pantoprazole. Pt notes taking an antihistamine today and felt better after that. Denies rash, diarrhea,
cough, chills, fever, urinary symptoms, change in mental status. Patient tested positive for COVID-19 on last visit (05/25/2024).
Past History
<Stacy Wolfe MD, Resident - Last Filed: 05/30/24 21:20>
Past History
ED Past Medical History: Fibromyalgia, GERD, HTN, Hypothyroidism and Other (Back pain Diverticulitis, UTI, Gastritis)
ED Past Surgical History: Appendectomy, Cholecystectomy, , Gynecological (Hysterectomy total) and Tonsilectomy
Social History
Tobacco: Non-smoker
Alcohol: Occasional
Personal:
Living: alone
Family History
Family History: Diabetes and CAD
Review of Systems
<Stacy Wolfe MD, Resident - Last Filed: 05/30/24 21:20>
Review of Systems
Constitutional: Reports no symptoms
EENT: Reports sore throat and other (sore nose)
Respiratory: Reports no symptoms
Cardiac: Reports no symptoms
ABD/GI: Reports abdominal pain and nausea
: Reports no symptoms
Musculoskeletal: Reports no symptoms
Skin: Reports no symptoms
Neurological: Reports no symptoms
Endocrine: Reports no symptoms
Hematologic/Lymphatic: Reports no symptoms
Psychiatric: Reports no symptoms
Phy Exam
<Stacy Wolfe MD, Resident - Last Filed: 05/30/24 21:20>
Physical Exam
Physical Exam:
GENERAL: Alert, in no apparent distress
EYE: pupils equal and reactive
NECK: Supple, no significant adenopathy.
ENT: o/p clr, mmm. Airway intact
CARDIAC: Regular rate and rhythm.
LUNGS: Clear breath sounds bilaterally, no acute respiratory distress, no wheezes/rales/rhonchi
ABDOMEN: Soft, without focal tenderness, no r/g, no cvat
NEUROLOGICAL: Alert and oriented, no focal neuro deficits
SKIN: Warm and dry, skin intact.
MUSCULOSKELETAL: No edema, well perfused.
PSYCH: Normal and appropriate interaction.
Course
<Stacy Wolfe MD, Resident - Last Filed: 05/30/24 21:20>
Orders/Labs/Results
Orders:
Orders
05/30/24 15:17
EKG [Electrocardiogram (*1)] Urgent
Reason for Study: Fatigue / Weakness
05/30/24 15:18
EKG- Treatment ONCE
05/30/24 15:20
Complete Blood Count/With Diff Urgent
Comprehensive Metabolic Panel Urgent
05/30/24 19:27
Sucralfate [Carafate] 1 gram PO NOW STA
05/30/24 19:46
Lidocaine Visc/Maalox/Benadryl [Magic or Miracle Mouthwash] 10 ml PO NOW STA
Abnormal Lab Results
05/30/24
15:20
WBC 16.8 H 10^3/uL
(4.8-10.8)
RBC 4.18 L 10^6/uL
(4.20-5.40)
Hct 36.7 L %
(37.0-47.0)
RDW 15.6 H %
(11.5-14.5)
Abs Immat Gran (auto) 0.3 H 10^3/uL
(0-0.05)
Absolute Neuts (auto) 11.4 H 10^3/uL
(1.4-6.5)
Absolute Monos (auto) 1.4 H 10^3/uL
(0.1-0.6)
Immature Gran % 1.8 H %
(0-0.5)
Lymphocytes % 19.5 L %
(20.5-51.1)
Carbon Dioxide 19 L mmol/L
(22-30)
BUN 20 H mg/dl
(7-17)
Glucose 117 H mg/dl
(70-99)
05/30/24 15:20
05/30/24 15:20
Vital Signs
Initial and Last Documented VS:
Initial Vital Signs
Pulse Resp BP Pulse Ox
87 13 140/72 97
05/30/24 15:15 05/30/24 15:15 05/30/24 15:15 05/30/24 15:15
Last Documented Vital Signs
Temp Pulse Resp BP Pulse Ox
98.1 F 88 15 156/75 97
05/30/24 15:18 05/30/24 20:15 05/30/24 20:15 05/30/24 20:00 05/30/24 19:45
[place];Emile Soriano DO - Last Filed: 05/30/24 20:46>
Orders/Labs/Results
Orders:
Orders
05/30/24 15:17
EKG [Electrocardiogram (*1)] Urgent
Reason for Study: Fatigue / Weakness
05/30/24 15:18
EKG- Treatment ONCE
05/30/24 15:20
Complete Blood Count/With Diff Urgent
Comprehensive Metabolic Panel Urgent
05/30/24 19:27
Sucralfate [Carafate] 1 gram PO NOW STA
05/30/24 19:46
Lidocaine Visc/Maalox/Benadryl [Magic or Miracle Mouthwash] 10 ml PO NOW STA
Abnormal Lab Results
05/30/24
15:20
WBC 16.8 H 10^3/uL
(4.8-10.8)
RBC 4.18 L 10^6/uL
(4.20-5.40)
Hct 36.7 L %
(37.0-47.0)
RDW 15.6 H %
(11.5-14.5)
Abs Immat Gran (auto) 0.3 H 10^3/uL
(0-0.05)
Absolute Neuts (auto) 11.4 H 10^3/uL
(1.4-6.5)
Absolute Monos (auto) 1.4 H 10^3/uL
(0.1-0.6)
Immature Gran % 1.8 H %
(0-0.5)
Lymphocytes % 19.5 L %
(20.5-51.1)
Carbon Dioxide 19 L mmol/L
(22-30)
BUN 20 H mg/dl
(7-17)
Glucose 117 H mg/dl
(70-99)
05/30/24 15:20
05/30/24 15:20
Vital Signs
Initial and Last Documented VS:
Initial Vital Signs
Pulse Resp BP Pulse Ox
87 13 140/72 97
05/30/24 15:15 05/30/24 15:15 05/30/24 15:15 05/30/24 15:15
Last Documented Vital Signs
Temp Pulse Resp BP Pulse Ox
98.1 F 88 15 156/75 97
05/30/24 15:18 05/30/24 20:15 05/30/24 20:15 05/30/24 20:00 05/30/24 19:45
<Stacy Wolfe MD, Resident - Last Filed: 05/30/24 21:20>
*Critical Care Note
Total Time (30-74mins, 75-104mins- exclusive of procedures): Not Applicable
ED Attending Note
<Stacy Wolfe MD, Resident - Last Filed: 05/30/24 21:20>
-
Portions of this chart may have been created with voice recognition software.� Occasional wrong word or��sound alike� substitutions may have occurred due to the inherent limitations of voice recognition software.
<Emile Soriano DO - Last Filed: 05/30/24 20:46>
ED Attending Note
Patient seen and examined by attending physician: Yes
I performed a history and physical exam of patient and discussed management with resident, I reviewed resident's note and agree with documented findings and plan of care.: Yes
ED Attending Note:
Patient is a 78-year-old female presents to the emergency department concerned that she is having an allergic reaction to Cardizem. Patient was placed on in the last week for atrial fibrillation. Patient during that admission was diagnosed with
COVID so cardioversion was not done following the CAITLIN. Patient was placed on Cardizem and then metoprolol. Patient complains of burning of her mouth with laryngitis and symptoms of gastritis which she has had before. Patient complains of nausea
with pain and upper abdomen. Patient also noticed a sore in her nose. Patient has had issues with Cardizem in the past that she associated with sun exposure. Patient states she is very sensitive to most medications. Patient had her metoprolol
recently decreased also. Patient states that they kept telling her she was in atrial fibrillation and would do cardioversion but wanted her to be COVID-negative first. Patient admits to being under incredible stress as her sister is upstairs in
the hospital. On physical exam the patient is mildly anxious. Patient's heart is regular and lungs are clear. Abdomen soft with midepigastric tenderness without guarding or rebound. Reviewed the patient's EKG is sinus rhythm. Patient is on
Eliquis. Will stop the diltiazem. Patient has Carafate at home and will start to take that if she is said has helped her in the past. Initially was going to increase her metoprolol but since it was recently lowered will leave it as is. Patient
to follow-up with her synthetic filament extruder on 08 June. Patient understands that if anything worsens is wrist regardless to breathing or heart rate to return.
Discharge Plan
Departure
Patient Disposition: Home (Routine Discharge)
Date of Disposition: 05/30/24
Time of Disposition: 19:48
Patient with high blood pressure during this ER visit?: No
Condition: Fair
Covid-19: Not Applicable
Discharge Problem:
Medication side effect
Instructions: [place] Diet, Gastritis (DC), Adverse Drug Reactions, Adult (DC)
Prescriptions:
No Action
levothyroxine 88 MCG tablet
88 mcg PO DAILY@06
cyclobenzaprine 10 MG tablet
10 mg PO HSPRN PRN (Reason: fibromyalgia)
lorazepam 0.5 mg Tablet
0.5 mg PO HS PRN (Reason: anxiety)
buspirone 15 mg Tablet
15 mg PO HS
pantoprazole [Protonix] 40 mg tablet,delayed release (DR/EC)
40 mg PO DAILY Qty: 30 0RF
nortriptyline 10 mg/5 mL Solution
10 mg PO HS
aspirin 81 mg Capsule
81 mg PO DAILY
Eliquis 5 mg Tablet
5 mg PO BID 30 Days Qty: 60 0RF
diltiazem HCl 240 mg Capsule,Extended Release 24hr
240 mg PO BID 30 Days Qty: 60 0RF
metoprolol tartrate 25 mg Tablet
12.5 mg PO BID 30 Days Qty: 30 0RF
Referrals:
Durga Bonilla MD [Family Provider] - Follow up in 5-7 days
Activity Restrictions/Additional Instructions:
Use Maalox or Mylanta 15 mL and mix with 15 mL of Benadryl elixir. Mix together swish around your mouth and swallow. Do this 4 times a day. Start your Carafate again with meals. Preferably 4 times a day. Increase your pantoprazole to twice a
day. Keep your metoprolol at its current dose. Stop the diltiazem/Cardizem. Make sure to follow-up with your family doctor.
Interventions
Interventions:
*Risk Screen - Suicide Last Done: 05/30/24 15:14
*General Assessment Last Done: 05/30/24 15:14
*Neglect/Abuse Screening Last Done: 05/30/24 15:14
ED- Fall Risk Assessment Last Done: 05/30/24 20:28
*ED COVID-19 Vaccine History Last Done: 05/30/24 15:14
*Nursing Disposition Last Done: 05/30/24 20:28
ED- Cardiac Assessment Last Done: 05/30/24 15:17
ED- Pulmonary Assessment Last Done: 05/30/24 15:17
ED-Skin Assessment Last Done: 05/30/24 15:17
Discharge Date and Time
Discharge Date/Time: 05/30/24 20:31
Print Language: GEORGIAN
[2024-05-30 18:00] VITALS: BP 135/75
[2024-05-30 19:00] VITALS: BP 138/78
[2024-05-30] MEDS: CARAFATE 1 GRAM PO (19:50)
[2024-05-30 20:00] VITALS: BP 156/75
[2024-05-30] MEDS: MAGIC OR MIRACLE MOUTHWASH 10 ML PO (20:19)
== END 2024-05-30 20:31 | disposition home or self-care (01) ==
LOC: EMR 15:09
PROVIDERS: EMERGENCY PHYSICIAN Emergency Medicine; FAMILY PHYSICIAN Family Medicine
DX: R09.89 Other specified symptoms and signs involving the circulatory and respiratory systems (principal); T46.1X5A Adverse effect of calcium-channel blockers, initial encounter; U07.1 COVID-19; I48.91 Unspecified atrial fibrillation; E03.9 Hypothyroidism, unspecified; I10 Essential (primary) hypertension; K21.9 Gastro-esophageal reflux disease without esophagitis; M79.7 Fibromyalgia; Z79.01 Long term (current) use of anticoagulants; Z79.899 Other long term (current) drug therapy
CPT/HCPCS: 99284; 80053; 85025; 93005

== ENCOUNTER → 2024-06-14 14:07 | Outpatient (REF) | payer MEDICARE, OTHER, SELFPAY | LOC: WDC 14:07 | PROVIDERS: ATTENDING PHYSICIAN Family Medicine | DX: Z12.31 Encounter for screening mammogram for malignant neoplasm of breast (principal) | CPT/HCPCS: 77063; 77067 ==

== ENCOUNTER → 2024-06-23 09:24 | Outpatient (REF) | payer MEDICARE, OTHER, SELFPAY | LOC: WDC 09:24 | PROVIDERS: ATTENDING PHYSICIAN Family Medicine | DX: R92.8 Other abnormal and inconclusive findings on diagnostic imaging of breast (principal) | CPT/HCPCS: 76642 ==

== ENCOUNTER → 2024-08-03 09:39 | Outpatient (REF) | payer MEDICARE, OTHER, SELFPAY | LOC: PAVMRI 09:39 | PROVIDERS: ATTENDING PHYSICIAN Specialist; FAMILY PHYSICIAN Family Medicine | DX: R10.11 Right upper quadrant pain (principal) | CPT/HCPCS: 74183; A9575 ==

== ENCOUNTER → 2024-09-14 15:56 | Outpatient (REF) | payer MEDICARE, OTHER, SELFPAY | LOC: RAD 15:56 | PROVIDERS: ATTENDING PHYSICIAN Family Medicine | DX: R76.11 Nonspecific reaction to tuberculin skin test without active tuberculosis (principal); Z11.1 Encounter for screening for respiratory tuberculosis | CPT/HCPCS: 71046 ==

== ENCOUNTER → 2024-09-28 14:11 | Outpatient (REF) | payer MEDICARE, OTHER, SELFPAY | LOC: DHVS 14:11 | PROVIDERS: ATTENDING PHYSICIAN Physician Assistant; FAMILY PHYSICIAN Family Medicine | DX: I65.22 Occlusion and stenosis of left carotid artery (principal) | CPT/HCPCS: 93880 ==

== ENCOUNTER 2024-10-03 19:49 | Emergency (ER) | payer MEDICARE, OTHER, SELFPAY ==
[2024-10-03 19:49] VITALS: BMI 27.1
[2024-10-03 19:53] VITALS: BP 166/83
[2024-10-03 19:55] VITALS: BP 166/83
[2024-10-03 20:12] LABS: % Basophils 0.6 % (0-2); % Eosinophils 2.5 % (0-6); % Immature Granulocytes 0.4 % (0-0.5); % Lymphocytes 27.7 % (20.5-51.1); % Monocytes 8.6 % (1.7-9.3); % Neutrophils 60.2 % (42.2-75.2); Absolute Basophils 0.1 10^3/uL (0-0.2); Absolute Eosinophils 0.3 10^3/uL (0-0.7); Absolute Immature Granulocytes 0.1 10^3/uL (0-0.05); Absolute Lymphocytes 3.4 10^3/uL (1.2-3.4); Absolute Monocytes 1.1 10^3/uL (0.1-0.6); Absolute Neutrophils 7.4 10^3/uL (1.4-6.5); Hematocrit 37.3 % (37.0-47.0); Hemoglobin 12.4 g/dL (12.0-16.0); Mean Corp Hgb Conc. 33.2 g/dL (33.0-37.0); Mean Corpuscular Hgb 27.9 pg (27.0-31.0); Mean Corpuscular Volume 83.8 fL (81.0-99.0); Mean Platelet Volume 9.9 fL (7.4-10.4); Nucleated Red Blood Cells % 0 %; Platelet Count 326 10^3/uL (130-400); Red Blood Cell Count 4.45 10^6/uL (4.20-5.40); Red Cell Dist. Width 14.9 % (11.5-14.5); White Blood Cell Count 12.4 10^3/uL (4.8-10.8)
[2024-10-03 20:29] LABS: ALT (SGPT) 16 U/L (0-35); AST (SGOT) 23 U/L (14-36); Albumin 4.8 g/dl (3.5-5.0); Alkaline Phosphatase 97 U/L (38-126); Blood Urea Nitrogen 14 mg/dl (7-17); Calcium 9.6 mg/dl (8.4-10.2); Carbon Dioxide 24 mmol/L (22-30); Chloride 107 mmol/L (98-107); Estimated Creatinine Clearance 57 ml/min; Glucose 98 mg/dl (70-99); Potassium 3.9 mmol/L (3.5-5.1); Sodium 140 mmol/L (135-145); Total Bilirubin 0.5 mg/dl (0.2-1.3); Total Protein 7.2 g/dl (6.3-8.2); eGFR > 60.00
[2024-10-03 20:37] LABS: Troponin I < 0.012 ng/ml
--- NOTE | 2024-10-03 20:39 | ED.GENMED ---
History of Present Illness
General
Chief Complaint: Chest Pain
Source: patient
Exam Limitations: none
Time Seen by Provider: 10/03/24 20:38
Nursing documentation reviewed up to this point in time: agreed with
History of Present Illness
History of Present Illness:
79 yo female w h/o A-fib on Eliquis, hypothyroidism, GERD, anxiety, HTN, HLD osteoporosis, fibromyalgia, presents for left chest pain for past 5 days. Pain worse if she presses on the area. Denies SOB, abd. pain, n/v/d/c.
Was at Dr. Gil's office 2:30 p.m. today and saw the BURIAL VAULT MAKER to review recent carotid studies, was told no change and she didn't have to f/u for another year. Her BP was high in the office so they recommended she come here for evaluation.
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
She had the left side chest pains and couldn't decide if it was her chronic gastritis or not so came here for evaluation.
She has been clearing out her house carrying boxes and items back and forth to her shed past couple of weeks and admits this may be muscular pain.
She has appointment with Cardiology Dr. Carlisle tomorrow.
Past History
Past History
ED Past Medical History: Fibromyalgia, GERD, HTN, Hypothyroidism and Other (Back pain Diverticulitis, UTI, Gastritis)
ED Past Surgical History: Appendectomy, Cholecystectomy, , Gynecological (Hysterectomy total) and Tonsilectomy
Social History
Tobacco: Non-smoker
Alcohol: Occasional
Personal:
Living: alone
Family History
Family History: Diabetes and CAD
Review of Systems
Review of Systems
Allergies reviewed?: Yes
All Other Systems: ROS reviewed and negative except as documented in HPI and ROS
Constitutional: Reports fatigue; Denies fever
Respiratory: Denies cough or trouble breathing
Cardiac: Reports chest pain; Denies diaphoresis or palpitations
ABD/GI: Reports abdominal pain (epigastric pain intermittent, chronic); Denies nausea, vomiting, diarrhea or anorexia
: Denies dysuria, frequency or difficulty voiding
Musculoskeletal: Reports no symptoms
Skin: Reports no symptoms
Neurological: Reports no symptoms
Phy Exam
Physical Exam
Physical Exam:
GENERAL: No acute distress. A&Ox3.
CONSTITUTIONAL: Afebrile.
EYES: clear, conjunctivae normal
ENMT: moist mucus membranes, Pharynx nl
RESPIRATORY: Regular respirations, nonlabored, lungs clear.
CARDIOVASCULAR: Regular rate and rhythm, no murmurs, no rubs.
GI: Soft, nontender, normal BS
MUSCULOSKELETAL: Moves with ease. Well perfused.
SKIN: Warm, dry, pink
PSYCH: Normal mood and affect. Well kept, interactive and appropriate
NEUROLOGIC: Awake, alert and oriented. No focal neurological deficits
Scores
Heart Score for Chest Pain Patients
STEMI patient?: Not applicable
Course
Orders/Labs/Results
Orders:
Orders
10/03/24 19:53
Electrocardiogram (*1) Urgent
Reason for Study: Chest Pain
10/03/24 19:54
EKG- Treatment ONCE
10/03/24 19:59
Complete Blood Count/With Diff Urgent
Comprehensive Metabolic Panel Urgent
Troponin I Urgent
Abnormal Lab Results
10/03/24
19:59
WBC 12.4 H 10^3/uL
(4.8-10.8)
RDW 14.9 H %
(11.5-14.5)
Abs Immat Gran (auto) 0.1 H 10^3/uL
(0-0.05)
Absolute Neuts (auto) 7.4 H 10^3/uL
(1.4-6.5)
Absolute Monos (auto) 1.1 H 10^3/uL
(0.1-0.6)
10/03/24 19:59
10/03/24 19:59
Vital Signs
Initial and Last Documented VS:
Initial Vital Signs
Temp Pulse Resp BP Pulse Ox
98.5 F 91 22 166/83 98
10/03/24 19:53 10/03/24 19:53 10/03/24 19:53 10/03/24 19:53 10/03/24 19:53
Last Documented Vital Signs
Temp Pulse Resp BP Pulse Ox
98.5 F 78 14 166/88 99
10/03/24 19:53 10/03/24 21:13 10/03/24 21:13 10/03/24 21:21 10/03/24 21:13
MDM/Problems Addressed
Differential Diagnosis Includes:
MA, GERD, costochondritis
MDM/Problems Addressed:
79 yo female w h/o A-fib on Eliquis, hypothyroidism, GERD, anxiety, HTN, HLD osteoporosis, fibromyalgia, presents for left chest pain for past 5 days. Pain worse if she presses on the area. Denies SOB, abd. pain, n/v/d/c.
Was at Dr. Gil's office 2:30 p.m. today and saw the B[employer]IAL VA[employer] MAKER to review recent carotid studies, was told no change and she didn't have to f/u for another year. Her BP was high in the office so they recommended she come here for evaluation.
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
She had the left side chest pains and couldn't decide if it was her chronic gastritis or not so came here for evaluation.
She has been clearing out her house carrying boxes and items back and forth to her shed past couple of weeks and admits this may be muscular pain.
She has appointment with Cardiology Dr. Carlisle tomorrow.
EKG: NSR
9:00 p.m.
CBC with no clinically significant abnormality
CMP normal
Troponin normal
Patient had chest x-ray on 09/15/2024 with no acute abnormality, no indication to repeat
Most likely costochondritis
Patient ambulated out with steady gait at discharge
*EKG
EKG Intrepretation Date: 10/03/24
Interpretation: normal
Heart Rate: 91
Rate: normal
Rhythm: sinus
Erin: normal axis
Interval: normal interval
QRS Pattern: normal QRS
Ischemia: no ischemia
*Critical Care Note
Total Time (30-74mins, 75-104mins- exclusive of procedures): Not Applicable
ED Attending Note
-
Portions of this chart may have been created with voice recognition software.� Occasional wrong word or��sound alike� substitutions may have occurred due to the inherent limitations of voice recognition software.
Discharge Plan
Departure
Patient Disposition: Home (Routine Discharge)
Date of Disposition: 10/03/24
Time of Disposition: 21:21
Patient with high blood pressure during this ER visit?: Yes
Condition: Good
Discharge Problem:
Atypical chest pain
Instructions: Chest Pain That Is Not Caused by the Heart (DC), Costochondritis (DC)
Prescriptions:
No Action
levothyroxine 88 MCG tablet
88 mcg PO DAILY@06
cyclobenzaprine 10 MG tablet
10 mg PO HSPRN PRN (Reason: fibromyalgia)
lorazepam 0.5 mg Tablet
0.5 mg PO HS PRN (Reason: anxiety)
buspirone 15 mg Tablet
15 mg PO HS
pantoprazole [Protonix] 40 mg tablet,delayed release (DR/EC)
40 mg PO DAILY Qty: 30 0RF
nortriptyline 10 mg/5 mL Solution
10 mg PO HS
aspirin 81 mg Capsule
81 mg PO DAILY
Eliquis 5 mg Tablet
5 mg PO BID 30 Days Qty: 60 0RF
diltiazem HCl 240 mg Capsule,Extended Release 24hr
240 mg PO BID 30 Days Qty: 60 0RF
metoprolol tartrate 25 mg Tablet
12.5 mg PO BID 30 Days Qty: 30 0RF
Referrals:
Leandro Carlisle DO [Active] - Keep scheduled appt
Durga Bonilla MD [Family Provider] -
Activity Restrictions/Additional Instructions:
As we discussed, nothing worrisome in your workup here today
You may have stressed the chest wall with all the carrying [id number] as you have been cleaning out your house and carrying stuff to and from your shed
Keep your appointment tomorrow with your event operations manager
Interventions
Interventions:
*Risk Screen - Suicide Last Done: 10/03/24 19:53
*General Assessment Last Done: 10/03/24 19:53
*Neglect/Abuse Screening Last Done: 10/03/24 19:53
*ED- Fall Risk Assessment Last Done: 10/03/24 19:53
*ED COVID-19 Vaccine History Last Done: 10/03/24 19:53
*Nursing Disposition Last Done: 10/03/24 21:34
ED- Cardiac Assessment Last Done: 10/03/24 20:02
Discharge Date and Time
Discharge Date/Time: 10/03/24 21:35
Print Language: SERBIAN
[2024-10-03 21:21] VITALS: BP 166/88
== END 2024-10-03 21:35 | disposition home or self-care (01) ==
LOC: EMR 19:49
PROVIDERS: EMERGENCY PHYSICIAN Emergency Medicine; FAMILY PHYSICIAN Family Medicine
DX: R07.89 Other chest pain (principal); I10 Essential (primary) hypertension; E03.9 Hypothyroidism, unspecified; E78.5 Hyperlipidemia, unspecified; Z79.01 Long term (current) use of anticoagulants
CPT/HCPCS: 99284; 80053; 84484; 85025; 93005

== ENCOUNTER → 2024-10-26 09:42 | Outpatient (REF) | payer MEDICARE, OTHER, SELFPAY | LOC: RAD 09:42 | PROVIDERS: ATTENDING PHYSICIAN Physician Assistant; FAMILY PHYSICIAN Family Medicine | DX: R10.13 Epigastric pain (principal) | CPT/HCPCS: 93975 ==

== ENCOUNTER → 2024-10-30 12:52 | Outpatient (REF) | payer MEDICARE, OTHER, SELFPAY | LOC: RCS 12:52 | PROVIDERS: ATTENDING PHYSICIAN Nuclear Medicine Nuclear Cardiology; FAMILY PHYSICIAN Family Medicine | DX: I10 Essential (primary) hypertension (principal); I48.92 Unspecified atrial flutter; R00.2 Palpitations | CPT/HCPCS: 93306 ==

== ENCOUNTER → 2024-11-28 09:00 | Outpatient (REF) | payer MEDICARE, OTHER, SELFPAY | LOC: RAD 09:00 | PROVIDERS: ATTENDING PHYSICIAN Physician Assistant | DX: K55.1 Chronic vascular disorders of intestine (principal) | CPT/HCPCS: 93975 ==

== ENCOUNTER → 2025-01-10 10:10 | Outpatient (REF) | payer MEDICARE, OTHER, SELFPAY ==
[2025-01-10 10:42] LABS: Hematocrit 35.9 % (37.0-47.0); Hemoglobin 11.8 g/dL (12.0-16.0); Mean Corp Hgb Conc. 32.9 g/dL (33.0-37.0); Mean Corpuscular Volume 89.5 fL (81.0-99.0); Nucleated Red Blood Cells % 0 %; Platelet Count 339 10^3/uL (130-400); Red Cell Dist. Width 15.7 % (11.5-14.5)
[2025-01-10 11:14] LABS: ALT (SGPT) 16 U/L (0-35); AST (SGOT) 19 U/L (14-36); Albumin 4.0 g/dl (3.5-5.0); Alkaline Phosphatase 69 U/L (38-126); Blood Urea Nitrogen 12 mg/dl (7-17); Calcium 9.2 mg/dl (8.4-10.2); Carbon Dioxide 24 mmol/L (22-30); Chloride 113 mmol/L (98-107); Glucose 117 mg/dl (70-99); Magnesium 2.0 mg/dl (1.6-2.3); Potassium 4.0 mmol/L (3.5-5.1); Sodium 142 mmol/L (135-145); Total Protein 6.6 g/dl (6.3-8.2); eGFR > 60.00
[2025-01-10 11:38] LABS: INR 1.00; PT 13.7 Sec (11.4-14.6)
== END ==
LOC: SDSPAT 10:10
PROVIDERS: ATTENDING PHYSICIAN Internal Medicine Cardiovascular Disease; FAMILY PHYSICIAN Family Medicine
DX: I48.91 Unspecified atrial fibrillation (principal)
CPT/HCPCS: 36415; 75572; 80053; 83735; 85025; 85610; 86850; 86900; 86901; 93005; Q9967

== ENCOUNTER 2025-01-14 15:18 | Emergency (ER) | payer MEDICARE, OTHER, SELFPAY ==
[2025-01-14 15:23] VITALS: BP 168/97
[2025-01-14 15:44] LABS: Hematocrit 35.9 % (37.0-47.0); Hemoglobin 11.9 g/dL (12.0-16.0); Mean Corp Hgb Conc. 33.1 g/dL (33.0-37.0); Mean Corpuscular Volume 88.9 fL (81.0-99.0); Nucleated Red Blood Cells % 0 %; Platelet Count 348 10^3/uL (130-400); Red Cell Dist. Width 15.0 % (11.5-14.5)
[2025-01-14 16:01] LABS: ALT (SGPT) 18 U/L (0-35); AST (SGOT) 26 U/L (14-36); Albumin 4.5 g/dl (3.5-5.0); Alkaline Phosphatase 72 U/L (38-126); Blood Urea Nitrogen 15 mg/dl (7-17); Calcium 9.4 mg/dl (8.4-10.2); Carbon Dioxide 23 mmol/L (22-30); Chloride 111 mmol/L (98-107); Glucose 112 mg/dl (70-99); Potassium 4.3 mmol/L (3.5-5.1); Sodium 141 mmol/L (135-145); Total Protein 7.1 g/dl (6.3-8.2); eGFR > 60.00
[2025-01-14 16:10] LABS: Troponin I < 0.012 ng/ml
[2025-01-14 16:41] VITALS: BP 167/76
[2025-01-14 16:45] VITALS: BMI 26.5
[2025-01-14 17:00] VITALS: BP 174/90
[2025-01-14] MEDS: ATIVAN 0.5 MG PO (17:15)
[2025-01-14 18:00] VITALS: BP 167/81
[2025-01-14 19:00] VITALS: BP 133/77
[2025-01-14 19:03] LABS: Troponin I < 0.012 ng/ml
--- NOTE | 2025-01-14 19:09 | ED.GENMED ---
History of Present Illness
General
Chief Complaint: Chest Pain
Source: patient
Exam Limitations: none
Time Seen by Provider: 01/14/25 16:39
Nursing documentation reviewed up to this point in time: agreed with
History of Present Illness
History of Present Illness:
Patient to ED wtih anxiety, high blood pressure and chest heaviness. States her sister is currently admitted, is very sick, 'and nobody knows what is wrong with her'. Patient states she noticed her BP was elevated this AM and it has stayed
elevatd. She states she is unable to take many anti-hypertensive medications due to history of adverse reactions. SHe came to the hospital to see her sister and anxiety escalated. She then developed chest pressure. Family advised her to come to
ED for eval.
Past History
Past History
ED Past Medical History: Fibromyalgia, GERD, HTN, Hypothyroidism and Other (Back pain Diverticulitis, UTI, Gastritis)
ED Past Surgical History: Appendectomy, Cholecystectomy, , Gynecological (Hysterectomy total) and Tonsilectomy
Social History
Tobacco: Non-smoker
Alcohol: Occasional
Personal:
Living: alone
Family History
Family History: Diabetes and CAD
Review of Systems
Review of Systems
Allergies reviewed?: Yes
All Other Systems: ROS reviewed and negative except as documented in HPI and ROS
Constitutional: Reports no symptoms
EENT: Reports no symptoms
Respiratory: Reports no symptoms
Cardiac: Reports other (chest pressure)
ABD/GI: Reports no symptoms
: Reports no symptoms
Musculoskeletal: Reports no symptoms
Skin: Reports no symptoms
Neurological: Reports no symptoms
Psychiatric: Reports anxiety
Phy Exam
General Physical Exam
General Presentation: mild distress
General age: appears stated age
General Skin: warm and dry
General Habitus: normal
General Mental: alert
Cardiovascular Exam
Cardiovascular Exam: regular rate/rhythm and no edema
Pulmonary Exam
Pulmonary Exam: lungs clear and no respiratory distress
Neurological Exam
Neurological Exam: alert, oriented x3, CN II-XII intact, no motor deficits, no sensory deficits and speech normal
Musculoskeletal Exam
Musculoskeletal Exam: full ROM and neuro vasc intact
Skin Exam
Skin Exam: normal color, warm/dry and no rash
Psychiatric Exam
Psychiatric Exam: normal mood/affect
Scores
Heart Score for Chest Pain Patients
STEMI patient?: No
History: Slightly or Non-Suspicious
ECG: Normal
Age: >/= 65 years
Risk Factors: 1 or 2 Risk Factors
Troponin: </= Normal Limit
Heart Score for Chest Pain Patients: 3
Heart Score Risk: 2.5% MACE over next 6 weeks
Course
Orders/Labs/Results
Orders:
Orders
01/14/25 15:18
Electrocardiogram (*1) Urgent
Reason for Study: Atrial Fibrillation
01/14/25 15:19
EKG- Treatment ONCE
01/14/25 15:32
Complete Blood Count/With Diff Urgent
Comprehensive Metabolic Panel Urgent
Troponin I Urgent
01/14/25 17:04
Lorazepam [Ativan] 0.5 mg PO NOW STA
01/14/25 18:30
Troponin I Stat
Abnormal Lab Results
01/14/25
15:32
WBC 12.0 H 10^3/uL
(4.8-10.8)
RBC 4.04 L 10^6/uL
(4.20-5.40)
Hgb 11.9 L g/dL
(12.0-16.0)
Hct 35.9 L %
(37.0-47.0)
RDW 15.0 H %
(11.5-14.5)
Abs Immat Gran (auto) 0.1 H 10^3/uL
(0-0.05)
Absolute Neuts (auto) 6.6 H 10^3/uL
(1.4-6.5)
Absolute Lymphs (auto) 3.6 H 10^3/uL
(1.2-3.4)
Absolute Monos (auto) 1.2 H 10^3/uL
(0.1-0.6)
Monocytes % 10.2 H %
(1.7-9.3)
Chloride 111 H mmol/L
(98-107)
Glucose 112 H mg/dl
(70-99)
01/14/25 15:32
01/14/25 15:32
Vital Signs
Initial and Last Documented VS:
Initial Vital Signs
Temp Pulse Resp BP Pulse Ox
97.8 F 79 16 168/97 96
01/14/25 15:23 01/14/25 15:23 01/14/25 15:23 01/14/25 15:23 01/14/25 15:23
Last Documented Vital Signs
Temp Pulse Resp BP Pulse Ox
97.8 F 83 13 133/77 97
01/14/25 15:23 01/14/25 19:15 01/14/25 19:15 01/14/25 19:00 01/14/25 19:16
*Pulse Oximetry
SaO2: 97
Oxygen Mode of Delivery: Room air
Patient hypoxic: no
*EKG
Rate: normal
Rhythm: sinus
*Critical Care Note
Total Time (30-74mins, 75-104mins- exclusive of procedures): Not Applicable
Update Note
Update Note:
Patient to ED with complaint of elelvated BP and chest pressure. Visibly anxious on arrival to ED. Labs, EKG reviewed. No concerning findings. Troponin neg x 2. Give dose of oral ativan in ED iwth excellent response. SHe is feeling much
better, pressure has resolved. WIll disharge home and she will follo wupw ith PCP in AM. Given instructions on s/s to return to ED and she is agreeable to plan. Given rx for 2 additional ativan doses. Will discuss with PCP recommendations future
episodes
ED Attending Note
-
Portions of this chart may have been created with voice recognition software.� Occasional wrong word or��sound alike� substitutions may have occurred due to the inherent limitations of voice recognition software.
Discharge Plan
Departure
Patient Disposition: Home (Routine Discharge)
Date of Disposition: 01/14/25
Time of Disposition: 19:16
Patient with high blood pressure during this ER visit?: Yes
Condition: Good
Covid-19: Not Applicable
Discharge Problem:
Chest pressure, Anxiety
Instructions: Anxiety in adults - ED discharge instructions, BLOOD PRESSURE
Prescriptions:
New
lorazepam [Ativan] 0.5 mg tablet
0.5 mg PO BID PRN (Reason: anxiety) Qty: 2 0RF
No Action
levothyroxine 88 MCG tablet
88 mcg PO DAILY@06
cyclobenzaprine 10 MG tablet
10 mg PO HSPRN PRN (Reason: fibromyalgia)
pantoprazole [Protonix] 40 mg tablet,delayed release (DR/EC)
40 mg PO DAILY Qty: 30 0RF
nortriptyline 10 mg/5 mL Solution
10 mg PO HS
Eliquis 5 mg Tablet
5 mg PO BID 30 Days Qty: 60 0RF
multivitamin Tablet
1 tab PO DAILY
alendronate 70 mg tablet
70 mg PO WE
Hair, Skin and Nails (biotin) 10,000 mcg Tablet,Chewable
PO DAILY
[place]-3 Plus Vitamin D3
2 tab PO DAILY
garlic
1 dose PO DAILY
Referrals:
Durga Bonilla MD [Family Provider, Family Practice] - Tomorrow
Activity Restrictions/Additional Instructions:
Return to the emergency department immediately for any changes in/worsening of your symptoms
Interventions
Interventions:
*Risk Screen - Suicide Last Done: 01/14/25 15:25
*General Assessment Last Done: 01/14/25 19:50
*Neglect/Abuse Screening Last Done: 01/14/25 15:25
*ED- Fall Risk Assessment Last Done: 01/14/25 16:46
*ED COVID-19 Vaccine History Last Done: 01/14/25 16:46
*Nursing Disposition Last Done: 01/14/25 19:50
ED- Cardiac Assessment Last Done: 01/14/25 16:48
Discharge Date and Time
Discharge Date/Time: 01/14/25 20:00
Print Language: ALBANIAN
== END 2025-01-14 20:00 | disposition home or self-care (01) ==
LOC: EMR 15:18
PROVIDERS: Emergency Medicine; Nurse Practitioner; EMERGENCY PHYSICIAN Emergency Medicine; FAMILY PHYSICIAN Family Medicine
DX: R07.89 Other chest pain (principal); F41.9 Anxiety disorder, unspecified; I10 Essential (primary) hypertension; E03.9 Hypothyroidism, unspecified; K21.9 Gastro-esophageal reflux disease without esophagitis; I48.91 Unspecified atrial fibrillation; M79.7 Fibromyalgia; Z82.49 Family history of ischemic heart disease and other diseases of the circulatory system; Z83.3 Family history of diabetes mellitus; Z87.19 Personal history of other diseases of the digestive system; Z87.440 Personal history of urinary (tract) infections; Z90.49 Acquired absence of other specified parts of digestive tract; Z90.710 Acquired absence of both cervix and uterus
CPT/HCPCS: 99283; 80053; 84484; 85025; 93005

== ENCOUNTER 2025-01-24 10:25 | Day surgery (SDC) | payer MEDICARE, OTHER, SELFPAY ==
[2025-01-10 10:17] VITALS: BMI 27.8
[2025-01-24] VITALS (17 sets, daily range): BP systolic 153–198; BP diastolic 82–106; BMI 27.8
--- NOTE | 2025-01-24 13:09 | ITS.CL.ABL ---
Actionscript Developer - Ablation
Ablation
Procedure Report:
ELECTROPHYSIOLOGIC STUDY AND POSSIBLE ABLATION
DATE: January 24, 2025
Primary Care Provider: Dr. Durga Bonilla
Primary Health Economist: Dr. Leandro Carlisle
INDICATION:
Symptomatic Atrial Fibrillation.
Paroxysmal
HISTORY: See H and P.
Symptomatic AF, poorly controlled with attempted medical therapy.
She has had paroxysms of atrial fibrillation sometimes several times a week episodes can last up to several hours.� Symptoms include lightheadedness as well as exertional fatigue and dyspnea on exertion.� She again points out she has had multiple
intolerances to any attempts at medical therapy to manage the atrial fibrillation and also multiple intolerances to antihypertensive drug therapy.
She has had no notable intolerances to oral anticoagulation.
[id number] score is 4 based on age, hypertension, female gender.
She has had symptomatic paroxysmal atrial fibrillation, paroxysmal atrial tachycardia as well. She has had multiple drug intolerances. She has been intolerant to metoprolol and also intolerant to diltiazem.
HAS-BLED:
Age
Uncontrolled HTN
CHADSVASc: 4
HTN
Age
F Gender
PRESENTING RHYTHM: SR
HISTORY: See H and P.
Symptomatic AF, poorly controlled with attempted medical therapy.
ANTICOAGULATION: Apixaban 5 mg twice daily
'TIME-OUT': called and confirmed.
SEDATION/ANESTHESIA: provided via the anesthesia department using general anesthesia.
PROCEDURE:
Ultrasound Guidance with real-time visualization of needle insertion and vessel patency performed by vt for femoral venous Vascular Access.
Under real-time US guidance, the needle was advanced with negative pressure into the vein. The needle was seen entering the vessel lumen with a good return of dark red flow, the syringe was removed, non-pulsatile, dark red blood low was noted and
the wire was passed without difficulty, then the needle was removed. US confirmed the wire was in the vein, not going into an artery,
Images were taken and saved for the patient's permanent record. Imaging findings typical femoral venous anatomy. Direct visualization of needle puncture into the femoral vein was observed and recorded.
A decapolar CS catheter was placed within the CS for mapping and pacing.
The intracardiac ultrasound catheter was positioned in the RA for continuous intracardiac ultrasound imaging.
Heparin bolus and infusion to target ACT at 300 -350 seconds was administered. Transseptal puncture was performed. This entailed advancing a sheath with dilator into the superior vena cava and withdrawing both (monitoring intracardiac ultrasound,
fluoroscopy and tip pressure) with the tip oriented toward the atrial septum. The fossa ovalis was engaged (indicated by sudden displacement of the sheath tip as well as tenting of the fossa seen on intracardiac ultrasound).
The Conductrics transseptal system was used. Left atrial catheter position was confirmed by echocardiographic imaging and fluoroscopy followed by RF delivery using the [email or web address] system resulting in successful LA access with pressure monitoring
demonstrating LA pressure waveforms (LA mean pressure [ ] mm Hg). The sheath was advanced over the dilator and positioned in the left atrium.
The Rivera Grid multipolar mapping catheter was initially positioned through the transseptal sheath for high density mapping.
Geometry and voltage mapping was performed using the Rivera multipolar grid catheter. Ensite-X was utilized for three-dimensional electroanatomical mapping.
A 3-D map was created using Ensite-X in Voxel mode. A 3-D reconstructed CT image was compared to the 3-D Navex map to assist in anatomic evaluation, mapping and ablation.
The Conductrics PFA catheter and system was used for cardiac ablation. Catheter positioning was guided and confirmed using both I.C.E. and fluoroscopy.
Ablation strategy included PVI as well as mapping for extra PV contributors to atrial fibrillation which would also be targeted if present.
High density electroanatomical three-dimensional mapping demonstrated % PVs (LSPV, LIPV, RSPV, RIPV there is also a right pulmonary vein coming off the dome of the right atrium at the antrum of the rspv).
After accomplishing pulmonary venous isolation, mapping identified additional areas likely to be extra PV contributors to atrial fibrillation. These areas demonstrated patchy low voltage as well as complex fractionated electrograms. These areas can
be sites for the formation of rotors which can drive and maintain atrial fibrillation. These areas are known to be significant contributors to initiation and perpetuation of atrial fibrillation.
Additional energy applications/additional ablation sets targeted extra PV contributors to atrial fibrillation.
Targets for additional PFA ablation included:
LA posterior wall targeted with pulsed electric field energy isolating the posterior wall of the left atrium
After ablation of the posterior wall, additional targets were addressed:
LA inferior floor line
These areas were ablated using pulsed electric field energy eliminating the extra PV contributors to atrial fibrillation.
Post ablation mapping finds entrance and exit block at each of the pulmonary veins the LA posterior wall and at the additional line at the inferior/floor of the LA rendering the sites no longer able to contribute to atrial fibrillation.
Programmed electrostimulation including burst atrial pacing as well the delivery of decremental extrastimuli down to atrial effective refractory period and no sustained arrhythmias could be induced.
I.C.E. :
Pre-Ablation Post-Ablation
LVEF: 55 % 55 %
WMA: none none
Pericardial effusion: none none
COMPLICATIONS:
None
SUMMARY:
- Mapping and ablation to isolate the PVs resulting in electrical isolation of the pulmonary veins
- Additional AF ablation sets X 2 after PVI (LA posterior wall, Inf/floor line) resulting in elimination of the targeted extra PV contributors to atrial fibrillation.
- 3-D Electroanatomical Mapping
- Intracardiac Ultrasound
- Ultrasound guidance for vascular access
Post ablation, I discussed today's findings and results with the patient's daughter, Jackie.
RECOMMENDATIONS:
- Observe in monitored bed.
- Maintain oral anticoagulation.
- Office visit with Minerva Taylor NP on May 01, 2025
- Continue cardiovascular care with Dr. Leandro Carlisle
Copy to:
Dr. Durga Bonilla
Dr. Leadnro Carlisle
[2025-01-24 13:46] LABS: ACT-LR - POC 271 Seconds (116-155)
[2025-01-24 14:04] LABS: ACT-LR - POC 343 Seconds (116-155)
[2025-01-24] MEDS: COREG 6.25 MG PO (15:57)
--- NOTE | 2025-01-24 16:28 | PTCARENOTE ---
pt complains that 'everything is hurting' stating she has a headache, chest pain, legs feel numb . she is also weepy because of her sister recently being in a [facility] and she is so sad. Dilcia Valenzuela unpaid intern in to assess pt. meds ordered
--- NOTE | 2025-01-24 16:44 | PTCARENOTE ---
lauren sergei up and wasted due to prolonged qt
[2025-01-24] MEDS: TORADOL 15 MG IV (16:46)
[2025-01-24] MEDS: PROTONIX IV 40 MG IV (16:54)
--- NOTE | 2025-01-24 18:32 | PTCARENOTE ---
Received pt from collaborative teacher, Right groin FOE sutures intact covered by 4x4 and tegadern dressing. Pt continues to c/o a sore throat and 'chest burning'. She rates this discomfort as 8 out of 10. Pt given tramadol in the cath recovery area. Pt
remains hypertensive w/ meds given in the recovery area. FOE sutures clipped. DP pulses +2. Will monitor.
[2025-01-24] MEDS: TYLENOL 650 MG PO (20:08)
[2025-01-24] MEDS: XANAX 0.25 MG PO (20:08)
[2025-01-24] MEDS: ELIQUIS 5 MG PO (20:12)
[2025-01-24] MEDS: ULTRAM 25 MG PO (22:26)
--- NOTE | 2025-01-24 22:54 | PTCARENOTE ---
Rec'd pt. AAOx3, anxious, NSR on the monitor. Right groin site dressing CDI without hematoma, pedal pulses palpable. BP elevated (161/82 last checked) and pt. complaining of headache. Tylenol ineffective. Dr. Monzon notified of headache and
BP, order for Tramadol x 1 obtained and administered. Pt. also given ice pack which she states is helpful. Pt. has been OOB to bathroom, ambulates with steady gait. Currently resting quietly.
[2025-01-24] MEDS: MAALOX 30 ML PO (23:56)
[2025-01-25 03:43] VITALS: BP 129/74
[2025-01-25 05:02] LABS: Hematocrit 31.0 % (37.0-47.0); Hemoglobin 10.2 g/dL (12.0-16.0); Mean Corp Hgb Conc. 32.9 g/dL (33.0-37.0); Mean Corpuscular Volume 88.8 fL (81.0-99.0); Platelet Count 301 10^3/uL (130-400); Red Cell Dist. Width 14.8 % (11.5-14.5)
[2025-01-25 05:14] LABS: Blood Urea Nitrogen 13 mg/dl (7-17); Calcium 8.5 mg/dl (8.4-10.2); Carbon Dioxide 23 mmol/L (22-30); Chloride 110 mmol/L (98-107); Estimated Creatinine Clearance 57 ml/min; Glucose 138 mg/dl (70-99); Magnesium 2.0 mg/dl (1.6-2.3); Potassium 4.2 mmol/L (3.5-5.1); Sodium 138 mmol/L (135-145); eGFR > 60.00
[2025-01-25] MEDS: SYNTHROID 88 MCG PO (05:57)
[2025-01-25] MEDS: TYLENOL 650 MG PO (05:57)
--- NOTE | 2025-01-25 07:02 | W.PN.CARDCBS ---
Today's Communication / Plan
-
Some of her post procedure symptoms appear related to anesthetic and should get better with a tincture of time
Added Coreg for hypertension
Stable for discharge
NOAC for minimum of 3 months
I took time to answer all questions and addressed patient concerns
Impression / Plan
-
Impression:
Status post PVI and left atrial posterior wall isolation on 01/24/[address] Monzon
Postprocedure headache
Post procedure hypertension
Essential hypertension
Multiple medication allergies and intolerances
Allergy list as noted
Paroxysmal atrial fibrillation
Recommendations:
Overnight she tolerated Coreg 6.25 mg twice daily
Will provide a discharge prescription for 6.25 mg twice daily Coreg for 30 days with 3 refills
Continue other medications including oral anticoagulation
Post procedure blood pressures are much improved 126/63 this morning
Reviewed her labs
Reviewed her postoperative telemetry
Stable for discharge today
Progress Note - Chemical Engineer
Subjective
Date of Service: January 25, 2025
Headache since procedure but slowly improving
Objective
Labs:
01/25/25 03:55
01/25/25 03:55
Labs
Hgb 10.2 g/dL (12.0-16.0) L 01/25/25 03:55
Hct 31.0 % (37.0-47.0) L 01/25/25 03:55
Plt Count 301 10^3/uL (130-400) 01/25/25 03:55
Sodium 138 mmol/L (135-145) 01/25/25 03:55
Potassium 4.2 mmol/L (3.5-5.1) 01/25/25 03:55
BUN 13 mg/dl (7-17) 01/25/25 03:55
Creatinine 0.7 mg/dL (0.6-1.0) 01/25/25 03:55
Glucose 138 mg/dl (70-99) H 01/25/25 03:55
Vital Signs and I&O:
Vital Signs
Temp Pulse Resp BP Pulse Ox
98.6 F 80 17 129/74 95
01/25/25 03:45 01/25/25 05:00 01/25/25 03:45 01/25/25 03:43 01/25/25 03:45
Vital Signs
Temp Pulse Resp BP Pulse Ox
98.6 F 80 17 129/74 95
01/25/25 03:45 01/25/25 05:00 01/25/25 03:45 01/25/25 03:43 01/25/25 03:45
Intake & Output
01/23/25 01/24/25 01/25/25 01/26/25
06:59 06:59 06:59 06:59
Intake Total 960 / 960
Balance 960 / 960
Physical Exam
Physical Exam
����Physical Exam
���������������������General:��no apparent distress, not acutely ill
���������������������������Neck:��supple. no meningeal signs. normal psoterior pharynx
������������������������
���������������������������Heart:��s1/s2 regular rate and rhythm, no murmur. equal radial pulses.
��������������������������Lungs: ��no acute respiratory distress. clear bilaterally
����������������������Abdomen:�normal bowel sounds. not tender. no CVAT
��������������������������Neuro:��alert and oriented. no focal neurological deficits
������������������������������Skin: ��no rash
�����������������������Psychiatric:�well kept. interactive and cooperative
�����������������������Extremities:��no edema. no calf tenderness. negative homans. good distal pulses
��
�
[2025-01-25 07:55] VITALS: BP 142/75
--- NOTE | 2025-01-25 08:52 | W.DS.TRANS ---
DC Summary - Reporting Lead
-
Discharge Instructions:
Sleep Apnea Risk Low
Discharge Diagnosis/Procedures Atrial fibrillation post ablation
Diet Low Cholesterol
Driving Restrictions No driving for 24 hours
Instructions:
Stand-Alone Forms: DC Instructions- Cath/EP Lab
Changes to Home Medications: Yes
Discharge Medications:
DC Medications w/original date entered in [facility]
levothyroxine 88 mcg tablet 88 mcg PO DAILY@06 Thyroid 05/23/10
cyclobenzaprine 10 mg tablet 10 mg PO HSPRN PRN fibromyalgia 12/30/17
pantoprazole 40 mg tablet,delayed release (Protonix) 40 mg PO DAILY Gastrointestinal issue #30 tabs 10/19/23
nortriptyline 10 mg/5 mL oral solution 10 mg PO HS Sleep 05/21/24
apixaban 5 mg tablet (Eliquis) 5 mg PO BID 30 days #60 tabs 05/22/24
[place]-3 Plus Vitamin D3 2 tab PO DAILY 01/08/25
alendronate 70 mg tablet 70 mg PO WE 01/08/25
biotin 10,000 mcg chewable tablet (Hair, Skin and Nails (biotin)) 10,000 mcg PO DAILY 01/08/25
garlic 1 dose PO DAILY 01/08/25
multivitamin 1 tab PO DAILY 01/08/25
estradiol 0.01% (0.1 mg/gram) vaginal cream 1 g vaginal QWEEK 01/24/25
vitamin B complex 1 cap PO DAILY 01/24/25
carvedilol 6.25 mg tablet 6.25 mg PO BID 30 days #60 tabs 01/25/25
Home Medication Changes
coreg is new
Pending Results: No
[2025-01-25] MEDS: PROTONIX 40 MG PO (08:56)
[2025-01-25] MEDS: ELIQUIS 5 MG PO (08:56)
[2025-01-25] MEDS: COREG 6.25 MG PO (08:56)
--- NOTE | 2025-01-25 09:48 | PTCARENOTE ---
Discharge instructions reviewed with Pt, Pt expressed understanding.
--- NOTE | 2025-01-25 10:01 | CM ---
Reviewed chart. Met with Mrs. Rodriguez to review discharge plans. She states prior to admission she resides with her younger sister in a one story home(mobile home) with three steps to enter. She states her siister is currently in [facility]
SNF for SNF/Rehab. So currently she is residing alone. She states prior to admission she was independent with ambulation and adls. She states she does not have any DME in the home. She states she has a prescription plan. She states she has two
daughters who reside locally and are supportive. The discharge plan is to return home when medically stable.
== END 2025-01-25 10:43 | disposition home or self-care (01) ==
LOC: CATH 10:25
PROVIDERS: Nurse Practitioner Adult Health; ATTENDING PHYSICIAN Internal Medicine Cardiovascular Disease; FAMILY PHYSICIAN Family Medicine; OTHER PHYSICIAN Nuclear Medicine Nuclear Cardiology
DX: I48.0 Paroxysmal atrial fibrillation (principal); I10 Essential (primary) hypertension; M79.7 Fibromyalgia; K58.9 Irritable bowel syndrome, unspecified; K21.9 Gastro-esophageal reflux disease without esophagitis; E03.9 Hypothyroidism, unspecified; M81.0 Age-related osteoporosis without current pathological fracture; Z79.890 Hormone replacement therapy; Z88.0 Allergy status to penicillin; Z79.899 Other long term (current) drug therapy; Z79.01 Long term (current) use of anticoagulants; I49.1 Atrial premature depolarization; Z90.722 Acquired absence of ovaries, bilateral; Z90.710 Acquired absence of both cervix and uterus; Z90.49 Acquired absence of other specified parts of digestive tract
CPT/HCPCS: C1732; C1894; C1769 ×2; C1730; 80048; 83735; 85027; 85347; 93005; 93656; 93657; C1733; C1766

== ENCOUNTER → 2025-04-25 13:09 | Outpatient (REF) | payer MEDICARE, OTHER, SELFPAY | LOC: HWRAD 13:09 | PROVIDERS: ATTENDING PHYSICIAN Otolaryngology; FAMILY PHYSICIAN Family Medicine | DX: R51.9 Headache, unspecified (principal); J32.9 Chronic sinusitis, unspecified | CPT/HCPCS: 70450 ==

== ENCOUNTER 2025-06-18 06:19 | Day surgery (SDC) | payer MEDICARE, OTHER, SELFPAY | END 2025-06-18 14:13 | disposition home or self-care (01) | LOC: GI 06:19 | PROVIDERS: ATTENDING PHYSICIAN Specialist | DX: R10.13 Epigastric pain (principal); K22.9 Disease of esophagus, unspecified; K31.89 Other diseases of stomach and duodenum | CPT/HCPCS: 43239; 87220; 88305; 88342 ==